=== PATIENT | female | born 1955 | race Caucasian/White ===

== ENCOUNTER 2023-09-23 11:00 | Outpatient (CLI) | payer MEDICARE, SELFPAY ==
--- NOTE | ~2023-09-23 | US_ITS ---
EXAMINATION: US pelvic complete w TV DATE: 09/23/2023 12:04 INDICATION: Postmenopausal bleeding Comparison:No prior studies for comparison. TECHNIQUE: Multiple transabdominal and endovaginal sonographic images of the pelvis performed. FINDINGS: The uterus measures 6.4 x 2.6 x 3.2 cm. The endometrial complex measures 4 mm. There is com plex fluid in the cervix. The right ovary contains a 4.2 cm cyst. There is also a 1.6 cm cyst of the right ovary. The left ovar y is not visualized. There is no free fluid in the pelvis. There are no abnormal masses seen on either side. IMPRESSION: 1. Endometrial thickening with complex fluid in the cervix. The differential diagnosis includes endom etrial hyperplasia, polyp and carcinoma. Biopsy is recommended. Reviewed, dictated and finalized at location B. IMPRESSION: 1. Endometrial thickening with complex fluid in the cervix. The differential di agnosis includes endometrial hyperplasia, polyp and carcinoma. Biopsy is recommended.
== END 2023-09-23 11:01 ==
LOC: MICIMG 11:02
PROVIDERS: PCP Family Medicine; Visit Provider Family Medicine
DX: N95.0 Postmenopausal bleeding (principal); N85.00 Endometrial hyperplasia, unspecified; Z78.0 Asymptomatic menopausal state; Z12.31 Encounter for screening mammogram for malignant neoplasm of breast
CPT/HCPCS: 76830; 76856

== ENCOUNTER 2023-10-16 01:58 | Day surgery (SDC) | payer MEDICARE, SELFPAY ==
--- NOTE | 2023-10-10 13:28 | PC.NURSE ---
Report to the Outpatient Waiting Room, entrance under the green pavilion located off [facility], at time __1200 on date _10/16/23 . Planned Procedure Time: __2:00 PM . Time changes happen often and if your time is changed the preop area will call you the afternoon before. - You and your visitor will be asked to self-screen and do not enter if you have any COVID symptoms. - A mask is optional within the hospital at this time. Patients may have clear liquids (water, carbonated beverages, clear teas, apple juice) until 3 hours prior to surgery ( 11:00 AM)with a maximum of 20 ounces. - No food from midnight until time of surgery - Infants may have breast milk until 4 hours before surgery, infant formula 6 hours prior to surgery. - Children will be allowed to drink immediately following surgery. If applicable, please bring a bottle or sippy cup to assist with drinking. Juice, water, soda, and popsicles are readily available. For infants on formula, please bring formula the day of surgery. Pacifiers are allowed. Take the following medications with a SIP of water the morning of surgery: __AMLODIPINE, DO NOT STOP ANY OF YOUR OTHER PRESCRIPTION MEDICATIONS PRIOR TO SURGERY ?EXCEPT THE FOLLOWING Medications to discontinue per physician __PT STATES LAST DOSE KOTA WAS 10/05/23 INSTRUCTED TO HOLD 10 DAYS PRE OP PER ANESTHESIA. HOLD ALL VITAMINS/SUPPLEMENTS/PROBIOTIC 3 DAYS PRE OP. LAST DOSE 10/12/[address] DUNLAP Please no make-up, nail croatian, hairspray, perfume, deodorant, or body powder the day of surgery. No jewelry (including any body piercings) or valuables the day of surgery, leave them at home. Please take a shower or bath the night before, or the morning of, surgery with an antibacterial soap. Wear comfortable, loose fitting clothing. Children are encouraged to wear pajamas. - Jewelry must be removed prior to entering the operating room. Rings and piercings that are not removed may be cut off. - The hospital will not accept responsibility for valuables. - Please leave all valuables, including medications, at home the day of surgery. If you are going home after surgery, a licensed combine driver must drive you home. - NO public transportation without another adult if you receive anesthesia. - We recommend that an adult stay with you for 24 hours following discharge. - We also recommend that you do not drive, make important decision, drink alcoholic beverages, or take any drugs that were not prescribed by your health care provider for at least 24 hours after your discharge time. For Pediatric surgeries, we recommend two adults accompany the child home. Follow any additional instructions given to you from your surgeon. If you or anyone in your household have experienced Covid symptoms in the past week, please notify your surgeon or the nurse liaison at the phone number below for possible testing. Telephone instructions given to __PATIENT and asked if any additional questions and then verbalized understanding. Patient advised to call surgeon office or pre surgery nurse liaison [phone] if any additional questions.
[2023-10-10 13:39] VITALS: BMI 52.3
--- NOTE | 2023-10-16 08:33 | PM.IMHP ---
H&P: HPI History of Present Illness Date/Time: 10/16/23 08:33 Chief Complaint: postmenopausal bleeding Narrative: 68-year-old female who presents for hysteroscopy D&C for postmenopausal bleeding.? Patient states she intermittent bleeding for the past several years.? Patient states she will periodically have episodes light bleeding on tissue after voiding.? Patient states the bleeding typically resolves after 1 episode and will be several months before returns.? Patient had not had any bleeding for the past year 2.? Patient states she presented to her primary care with complaints and had a pelvic ultrasound ordered.? Patient has not had any continued vaginal bleeding since that time.? She denies any pain, cramping, discharge.? Patient's pelvic ultrasound showed endometrial lining of 4 mm with a small amount of fluid within the endocervical canal.? Patient denies any family history of gynecologic cancers.? She denies any history of systemic HRT Review of Systems Cardiovascular: Cardiovascular: Denies chest pain, Denies leg edema, Denies palpitations, Denies dyspnea and Denies dyspnea on exertion Respiratory: Respiratory: Denies cough, Denies dyspnea and Denies dyspnea on exertion Gastrointestinal: Gastrointestinal: Denies abdominal pain, Denies constipation, Denies diarrhea, Denies nausea and Denies vomiting Genitourinary: Genitourinary: Denies hematuria, Denies urinary frequency, Denies dysuria, Denies pelvic pain, Denies urinary incontinence and Denies vaginal discharge Neurologic: Reports system reviewed and no additional complaints, except as documented Psychiatric: Psychiatric: Reports no additional psychiatric complaints Endocrine: Endocrine: Denies palpitations PMFSH Past Medical History Medical History Asthma GERD (gastroesophageal reflux disease) Hx pulmonary embolism Hypertension, essential Kidney malignancy Surgical History Surgical History H/O gastric sleeve History of delivery History of kidney surgery Hx of cholecystectomy S/P total knee arthroplasty Family History Family History Mother Emphysema lung Father Emphysema lung Carcinoma of colon Sibling Stomach cancer Social History Social History Smoking status: Never smoker Alcohol intake: never Substance use: never Do You Feel Safe in your Home?: Yes Lack of Transportation: No Lack of Food: Never True Current Housing: I Have Housing Concerned About Future Housing: No Difficulty Paying Gas/Electric Bills: No Difficulty Paying for Meds: No Currently Unemployed: No Education: High School Diploma/GED Difficulty w/ Childcare or Family Care: No Living arrangements: alone Occupation/Education: occupation Gender identity (if verbalized by the patient): Female Spiritual care concerns: No Meds Home Medications and Allergies Home Medications Medication Instructions Recorded Confirmed Type aspirin 81 mg tablet,delayed 81 mg PO DAILY 04/08/19 10/10/23 History release (Enteric Coated Aspirin) albuterol sulfate 90 mcg/actuation 2 puff inhalation Q4H PRN 04/09/19 10/10/23 Rx aerosol inhaler (Proventil HFA) SHORTNESS OF BREATH #8.5 grams amlodipine 5 mg tablet 5 mg PO DAILY #0 tabs 04/09/19 10/10/23 Rx escitalopram oxalate 5 mg tablet 5 mg PO QNOON 10/02/23 10/10/23 History (Lexapro) omeprazole 40 mg capsule,delayed 40 mg PO DAILY 10/02/23 10/10/23 History release cyanocobalamin (vitamin B-12) 1,000 mcg PO DAILY 10/10/23 10/10/23 History 1,000 mcg tablet lactobacillus combination no.8 3 3 cell PO DAILY 10/10/23 10/10/23 History billion cell capsule tirzepatide 2.5 mg/0.5 mL 2.5 mg subcut WEEKLY WEIGHT LOSS 10/10/23 10/10/23 History subcutaneous pen injector (Leyla)
[2023-10-16 10:25] VITALS: BP 148/65; PULSE 77; RESP 18; TEMP 36.4; O2SAT 98
[2023-10-16] MEDS: ACETAMINOPHEN 500 MG TABLET 1000 MG PO (10:54)
--- NOTE | 2023-10-16 11:39 | WPDHPUPDATE1 ---
History and Physical Update Update Date/Time: 10/16/23 11:39 Will proceed with hysteroscopy D&C History and Physical has been reviewed, including an updated exam of the patient. There are NO changes in the patient's condition. Risks, benefits, and alternatives have been discussed and questions answered. Patient agrees to proceed with procedure.
[2023-10-16] MEDS: LACTATED RINGERS 1,000 ML 30 ML IV CONT (12:00)
--- NOTE | 2023-10-16 12:25 | W.PM.PROC2 ---
Procedure Note - Detailed Date of Procedure 10/16/23 Pre-op Diagnosis post menopausal bleeding Post-op Diagnosis Same Procedure Performed paracervical block hysteroscopy dilation & curettage Surgeon Pj Bailon MD Anesthesia General Indications abnormal uterine bleeding Findings normal appearing intrauterine cavity. Normal tubal ostia bilaterally Description of Procedure Alexandria Hoover presents for the above procedure. She was counseled as to the indications, risks, benefits, and alternatives to surgery, with the risks including bleeding, infection, damage to surrounding organs, VTE, and complications of anesthesia. Her verbal and written consent was obtained. PROCEDURE: The patient was taken to the OR and general anesthesia induced. She was prepped and draped in Km stirrups with support of the back and bilateral lower extremities. I/O catheterization performed of the bladder. The above findings were noted. Infiltration with 1% lidocaine at the 3 and 9 o'clock cervical positions was performed. A single tooth tenaculum was placed on the anterior lip of the cervix. The cervix was dilated with sequential Jeannine dilators. Hysteroscopy, using a normal saline medium, was performed and showed the above findings. Sharp uterine curettage was then performed and tissue placed on Telfa. The tenaculum was removed and hemostasis was observed. The patient tolerated the procedure well. Sponge, lap, and needle counts were correct. The patient had SCD's on throughout the case for VTE prophylaxis. The patient was taken to the recovery room in stable condition. Estimated Blood Loss 5 Urine Output 200 Drains No Packing No Pathology Yes (endometrial curettings ) Complications No immediate complications Condition Stable Disposition PACU [facility] Billing Surgery - Charge Forward: Surgery Billing
[2023-10-16 12:29] VITALS: BP 121/67; PULSE 81; O2SAT 98
[2023-10-16] MEDS: ONDANSETRON INJ 4 MG/2 ML VIAL IV PUSH (12:50)
[2023-10-16 12:59] VITALS: BP 149/75; PULSE 80
[2023-10-16] MEDS: HYDROcodone/acetaminophen (*CRX) 5-325 MG TABLET 1 TAB PO (13:05)
[2023-10-16 13:26] VITALS: BP 138/64; PULSE 80
== END 2023-10-16 13:28 | disposition home or self-care (01) ==
PROVIDERS: PCP Family Medicine; Visit Provider Student in an Organized Health Care Education/Training Program
PROC: 0U5B8ZZ Destruction of Endometrium, Via Natural or Artificial Opening Endoscopic (ICD-10-PCS; CPT 58563; principal; 2023-10-16 12:00)
DX: N95.0 Postmenopausal bleeding (principal); I10 Essential (primary) hypertension; J45.909 Unspecified asthma, uncomplicated; K21.9 Gastro-esophageal reflux disease without esophagitis; Z79.51 Long term (current) use of inhaled steroids; Z79.82 Long term (current) use of aspirin; Z98.890 Other specified postprocedural states; Z98.84 Bariatric surgery status; Z90.49 Acquired absence of other specified parts of digestive tract; Z85.528 Personal history of other malignant neoplasm of kidney; Z80.0 Family history of malignant neoplasm of digestive organs
CPT/HCPCS: 58558; 88305; A9270; J1100; J2250; J2405; J2704; J3010; J7120

== ENCOUNTER 2023-12-19 00:19 | Day surgery (SDC) | payer MEDICARE, SELFPAY ==
[2023-12-05 13:30] VITALS: BMI 49.1
[2023-12-19 11:17] VITALS: BP 150/82; PULSE 91; RESP 16; TEMP 36.5; O2SAT 97
[2023-12-19] MEDS: LACTATED RINGERS 1,000 ML 150 ML IV CONT (11:29)
--- NOTE | 2023-12-19 11:33 | WPDANESEPPF ---
Anes - Initial Pre Proc Eval Procedure: Operation Date: 12/19/23 12:30 Proposed Procedures p Screening Colonoscopy - Anthony Sosa MD Date/Time: 12/19/23 11:33 Surgeon: Anthony Sosa MD Pre Op Diagnosis: Neoplasm Screening Patient Data Age: 68 Gender: F Height: 1.63 m Weight: 126.8 kg Last Vital Signs Temp 97.7 F 12/19/23 11:17 Pulse 91 12/19/23 11:17 Resp 16 12/19/23 11:17 BP 150/82 H 12/19/23 11:17 Pulse Ox 97 12/19/23 11:17 O2 Del Method Room Air 12/19/23 11:17 Allergies Allergy/AdvReac Type Severity Reaction Status Date / Time codeine Allergy Mild NAUSEA AND Verified 12/19/23 11:13 VOMITING ibuprofen [From Motrin] AdvReac Intermediate Nausea and Verified 12/19/23 11:13 Vomiting Home Medications Medication Instructions Recorded Confirmed Type aspirin 81 mg tablet,delayed 81 mg PO DAILY 04/08/19 12/19/23 History release (Enteric Coated Aspirin) albuterol sulfate 90 mcg/actuation 2 puff inhalation Q4H PRN 04/09/19 12/19/23 Rx aerosol inhaler (Proventil HFA) SHORTNESS OF BREATH #8.5 grams amlodipine 5 mg tablet 5 mg PO DAILY #0 tabs 04/09/19 12/19/23 Rx escitalopram oxalate 5 mg tablet 5 mg PO QNOON 10/02/23 12/19/23 History (Lexapro) omeprazole 40 mg capsule,delayed 40 mg PO DAILY 10/02/23 12/19/23 History release cyanocobalamin (vitamin B-12) 1,000 mcg PO DAILY 10/10/23 12/19/23 History 1,000 mcg tablet lactobacillus combination no.8 3 3 cell PO DAILY 10/10/23 12/19/23 History billion cell capsule tirzepatide 2.5 mg/0.5 mL 2.5 mg subcut WEEKLY WEIGHT LOSS 10/10/23 12/19/23 History subcutaneous pen injector (Mounjaro) vitamin D3 250 mcg (10,000 1 cap PO DAILY 10/10/23 12/19/23 History unit)-vitamin K2 45 mcg capsule acetaminophen 500 mg tablet 500 mg PO Q6H PRN pain #30 tabs 10/16/23 12/19/23 Rx Patient hx anesthesia problems: none Family hx anesthesia problems: none Results Review: All pre-operative results and documents have been reviewed as part of the pre-operative evaluation. [facility] Past Medical History Medical History Asthma GERD (gastroesophageal reflux disease) Hx pulmonary embolism Hypertension, essential Kidney malignancy Surgical History Surgical History H/O gastric sleeve History of delivery History of kidney surgery Hx of cholecystectomy S/P total knee arthroplasty Family History Family History Mother Emphysema lung Father Emphysema lung Carcinoma of colon Sibling Stomach cancer Social History Social History Smoking status: Never smoker Alcohol intake: never Substance use: never Substance use type: does not use Do You Feel Safe in your Home?: Yes Lack of Transportation: No Lack of Food: Never True Current Housing: I Have Housing Concerned About Future Housing: No Difficulty Paying Gas/Electric Bills: No Difficulty Paying for Meds: No Currently Unemployed: No Education: High School Diploma/GED Difficulty w/ Childcare or Family Care: No Living arrangements: alone Occupation/Education: occupation Gender identity (if verbalized by the patient): Female Spiritual care concerns: No Anes - Eval Final PreProcedure Day of Procedure 12/19/23 11:33 Patient weight: morbidly obese Heart: regular rate and rhythm Lungs: clear to auscultation Airway: Mallampati scale class II Neurological: alert and oriented Last oral intake: >/= 8 hours ASA classification: III Emergent: no Anesthetic plan: proceed Anesthesia type and monitoring: general GIVS and standard monitoring Results Review: All pre-operative results and documents have been reviewed as part of the pre-operative evaluation. Informed Consent: The patient
--- NOTE | 2023-12-19 11:38 | PM.HPGS ---
History of Present Illness History of Present Illness Consent: Risks, benefits, and alternatives have been discussed and questions answered. Patient agrees to proceed with procedure. Chief complaint: Neoplasm Screening Narrative: Alexandria Hoover is a 68 year old female with colon polyp 8 years ago Review of Systems Review of Systems: All systems reviewed & are unremarkable except as noted in HPI and below PMFSH Past Medical History Medical History (Updated 12/19/23 @ 11:41 by Anthony Sosa MD) Asthma Colon polyp GERD (gastroesophageal reflux disease) Hx pulmonary embolism Hypertension, essential Kidney malignancy Surgical History Surgical History H/O gastric sleeve History of delivery History of kidney surgery Hx of cholecystectomy S/P total knee arthroplasty Family History Family History Mother Emphysema lung Father Emphysema lung Carcinoma of colon Sibling Stomach cancer Social History Social History Smoking status: Never smoker Alcohol intake: never Substance use: never Substance use type: does not use Do You Feel Safe in your Home?: Yes Lack of Transportation: No Lack of Food: Never True Current Housing: I Have Housing Concerned About Future Housing: No Difficulty Paying Gas/Electric Bills: No Difficulty Paying for Meds: No Currently Unemployed: No Education: High School Diploma/GED Difficulty w/ Childcare or Family Care: No Living arrangements: alone Occupation/Education: occupation Gender identity (if verbalized by the patient): Female Spiritual care concerns: No Meds Home Medications and Allergies Home Medications Medication Instructions Recorded Confirmed Type aspirin 81 mg tablet,delayed 81 mg PO DAILY 04/08/19 12/19/23 History release (Enteric Coated Aspirin) albuterol sulfate 90 mcg/actuation 2 puff inhalation Q4H PRN 04/09/19 12/19/23 Rx aerosol inhaler (Proventil HFA) SHORTNESS OF BREATH #8.5 grams amlodipine 5 mg tablet 5 mg PO DAILY #0 tabs 04/09/19 12/19/23 Rx escitalopram oxalate 5 mg tablet 5 mg PO QNOON 10/02/23 12/19/23 History (Lexapro) omeprazole 40 mg capsule,delayed 40 mg PO DAILY 10/02/23 12/19/23 History release cyanocobalamin (vitamin B-12) 1,000 mcg PO DAILY 10/10/23 12/19/23 History 1,000 mcg tablet lactobacillus combination no.8 3 3 cell PO DAILY 10/10/23 12/19/23 History billion cell capsule tirzepatide 2.5 mg/0.5 mL 2.5 mg subcut WEEKLY WEIGHT LOSS 10/10/23 12/19/23 History subcutaneous pen injector (Leyla) vitamin D3 250 mcg (10,000 1 cap PO DAILY 10/10/23 12/19/23 History unit)-vitamin K2 45 mcg capsule acetaminophen 500 mg tablet 500 mg PO Q6H PRN pain #30 tabs 10/16/23 12/19/23 Rx Allergies Allergy/AdvReac Type Severity Reaction Status Date / Time codeine Allergy Mild NAUSEA AND Verified 12/19/23 11:13 VOMITING ibuprofen [From Motrin] AdvReac Intermediate Nausea and Verified 12/19/23 11:13 Vomiting Vital Signs Vital Signs - 24 hr 12/19/23 11:17 Temperature 97.7 F Pulse Rate 91 Respiratory Rate 16 Blood Pressure 150/82 H Pulse Oximetry 97 Oxygen Delivery Room Air Exam Const: General: comfortable and no acute distress HENMT: Face/Nose/Sinus: Normal nares present Eyes: General: appearance normal, both eyes and all related structures Neck: Neck: no JVD Resp: Auscultation: clear to auscultation bilaterally Cardio: Rate: regular rate Rhythm: regular rhythm GI: Inspection: non-distended GI Palp: Yes Soft to palpation Skin: General skin exam: normal color Neuro: General: gait normal Speech: normal speech Extrem: General: normal to inspection Psych: Mental Status: mental status grossly normal Assessment and Plan Assessment and plan (1) Colon polyp:
[2023-12-19 11:55] VITALS: BP 129/67; PULSE 81; RESP 19; O2SAT 98
[2023-12-19 12:05] VITALS: BP 136/72; PULSE 79; RESP 23; O2SAT 99
[2023-12-19 12:15] VITALS: BP 133/75; PULSE 72; RESP 18; O2SAT 99
== END 2023-12-19 12:22 | disposition home or self-care (01) ==
PROVIDERS: PCP Family Medicine; Visit Provider Internal Medicine Gastroenterology
PROC: 0DJD8ZZ Inspection of Lower Intestinal Tract, Via Natural or Artificial Opening Endoscopic (ICD-10-PCS; CPT 45378; principal; 2023-12-19 12:30)
DX: Z12.11 Encounter for screening for malignant neoplasm of colon (principal); D12.3 Benign neoplasm of transverse colon; K64.8 Other hemorrhoids; K57.30 Diverticulosis of large intestine without perforation or abscess without bleeding; I10 Essential (primary) hypertension; J45.909 Unspecified asthma, uncomplicated; K21.9 Gastro-esophageal reflux disease without esophagitis; E66.01 Morbid (severe) obesity due to excess calories; Z68.42 Body mass index [BMI] 45.0-49.9, adult; Z79.82 Long term (current) use of aspirin; Z79.51 Long term (current) use of inhaled steroids; Z98.890 Other specified postprocedural states; Z98.84 Bariatric surgery status; Z90.49 Acquired absence of other specified parts of digestive tract; Z86.711 Personal history of pulmonary embolism; Z85.528 Personal history of other malignant neoplasm of kidney; Z80.1 Family history of malignant neoplasm of trachea, bronchus and lung; Z80.0 Family history of malignant neoplasm of digestive organs
CPT/HCPCS: 45385; 88305; J7120

== ENCOUNTER 2024-02-17 10:40 | Outpatient (CLI) | payer MEDICARE, SELFPAY ==
--- NOTE | ~2024-02-17 | MM_ITS ---
EXAMINATION: MM screening rashmi BI w franck HISTORY: Screening mammogram TECHNIQUE: Craniocaudal and mediolateral oblique 3-D tomosynthesis images were obtained and synthetic 2-D images were generated. CAD analysis was submitted and interpreted. COMPARISON: No prior mammogram is available for comparison at this institution. BREAST PARENCHYMAL COMPOSITION:Not Dense. The breasts are almost entirely fatty FINDINGS: No suspicious mass, calcification, or architectural distortion are identified in either [place] ast to suggest malignancy. There has been no suspicious interval change. IMPRESSION: No mammographic evidence of malignancy. Recommend routine screening mammography in one year. BI-RADS Category 1: Negative Reviewed, dictated and finalized at location .
== END 2024-02-17 10:41 | disposition home or self-care (01) ==
PROVIDERS: PCP Nurse Practitioner Family; Visit Provider Family Medicine
DX: Z12.31 Encounter for screening mammogram for malignant neoplasm of breast (principal); Z78.0 Asymptomatic menopausal state
CPT/HCPCS: 77063; 77067

== ENCOUNTER 2024-07-19 14:40 | Outpatient (CLI) | payer MEDICARE, SELFPAY ==
--- NOTE | ~2024-07-19 | DEXA_ITS ---
Bone Density Report Name: NEL DICKERSON Age: 69 Sex: Female Ethnicity: White Date of : 1955 Indication: postmenopausal; screening for osteoporosis; height loss; asthma or emphysema; Referring Provider: TERE, RANJITH Anderson Study: Bone densitometry was performed. Exam Date: July 19, 2024 Accession number: [id number] Bone Density: Region BMD T-score Z-score Classification AP Spine(L1-L4) 1.145 0.9 2.8 Normal Femoral Neck (Left) 0.802 -0.4 1.2 Normal Total Hip (Left) 0.999 0.5 1.8 Normal Femoral Neck (Right) 0.884 0.3 1.9 Normal Total Hip (Right) 1.048 0.9 2.2 Normal Total Hip Mean 1.023 0.7 2.0 Normal World Health Organization criteria for BMD impression classify patients as: Normal (T-score at or above -1.0), Osteopenia (T-score between -1.0 and -2.5), or Osteoporosis (T-score at or below -2.5). 10-year Fracture Risk: FRAX not reported because: All T-scores for Spine Total, Hip Total, Femoral Neck at or above -1.0 Clinical Information Provided by Patient: Has the following medical conditions: Asthma or Emphysema Patient maximum height was 64 Menopause Age: 48 No regular weight bearing exercise Onset of menses at age 14 Number of children 1 Impression: The patient has normal bone mass. Discussion: BONE DENSITY IS ABOVE THE MINIMUM DESIRABLE LEVEL AT ALL SKELETAL SITES TESTED. This patient?s bone mineral density is above the minimum desirable level (T-score -1.0 or better) at all sites measured. The patient should follow a healthful lifestyle (good nutrition with adequate calcium and vitamin D, and appropriate weight-bearing exercise). Follow-Up: Consider repeating this study in 5 years or sooner if there is some new clinical indication. Reported by: WIN on 07/19/2024 3:14:00 PM. Reviewed, dictated and finalized at location [facility] [place]
--- OUTSIDE RECORDS SUMMARY | 2024-07-19 14:58 | XMS_ITS | Clinical Summary ---
Author [place] [facility] [place] [address] Address [address] [place] [address] Care Team Providers Care Industrial Service Technician Name Role Phone Shari Sadler MD Primary Care Provider + Allergies Active Allergy Reactions Criticality Noted Date Comments Codeine Rash,Nausea & Vomiting,Hives Medium Ibuprofen Hives,Rash,Nausea & Vomiting Medium Pt states she is allergic to mortin and can take ibuprofen Medications amLODIPine (NORVASC) 5 mg tablet TK 1 T PO QD 3 05/25/2018 Active PROAIR HFA 90 mcg/actuation inhaler INL 2 PFS PO Q 4 H PRN 5 05/20/2018 Active LORazepam (ATIVAN) 1 mg tablet Take 1 mg by mouth every 6 (six) hours as needed for anxiety Active mometasone 220 mcg/ actuation (120) aerosol powdr breath activated every 12 hours Active aspirin 81 mg enteric coated tablet Take 81 mg by mouth daily Active escitalopram (LEXAPRO) 5 mg tablet Take 5 mg by mouth daily Active busPIRone (BUSPAR) 15 mg tablet as needed 03/23/2020 Active Active Problems Problem Noted Date Diagnosed Date SOB (shortness of breath) 10/10/2021 History of pulmonary embolism 10/10/2021 Pulmonary HTN 08/06/2019 Chronic fatigue 02/18/2019 Palpitations 11/26/2018 Morbid obesity with BMI of 50.0-59.9, adult (CMS /HCC) 11/26/2018 Wide-complex tachycardia 08/14/2018 HTN (hypertension), benign 08/14/2018 Other pulmonary embolism without acute cor pulmo nale 07/15/2018 Resolved Problems Problem Noted Date Diagnosed Date Resolved Date Chronic anticoagulation 08/14/201809/2021 Morbid obesity (CMS/HCC) 07/08/201109/2021 Surgical History Surgery Date Site/Laterality Comments SLEEVE GASTROPLASTY NEPHRECTOMY Right CHOLECYSTECTOMY SECTION Medical History Medical History Date Comments Osteoarthritis of both knees Renal cell carcinoma, right (HCC) Anxiety Asthma Bronchitis Hypertension Morbid obesity (HCC) Family History Medical History Relation Name Comments No Known Problems Brother No Known Problems Father No Known Problems Mother Stomach cancer Sister Relation Name Status Comments Brother Alive Father Mother Sister (Age 52) Social History Tobacco Use Types Packs/Day Years Used Date Smoking Tobacco: Never Smokeless Tobacco: Never Alcohol Use Standard Drinks/Week Comments No 0 (1 standard drink = 0.6 oz pur e alcohol) Personal Safety Answer Date Recorded Getting School Help Needed Not on file Comments Unknown Sex and Gender Information Value Date Recorded Sex Assigned at Not on file Legal Sex Female 12:20 AM THERAPIST OCCUPATIONAL Gender Identity Not on file Sexual Orientation Not on file 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 Not on file Not on file Not on file Obstetrics History Last Filed Vital Signs Vital Sign Reading Time Taken Comments Blood Pressure 118/78 10/10/2021 8:24 AM CDT Pulse 79 10/10/2021 8:24 AM CDT Temperature 36.5 C (97.7 F) 04/27/2020 8:11 AM THERAPIST OCCUPATIONAL Respiratory Rate 18 08/25/2018 3:09 PM CDT Oxygen Saturation 98% 10/10/2021 8:24 AM CDT Inhaled Oxygen Concentration - - Weight 135.1 kg (297 lb 12.8 oz) 10/10/2021 8:24 AM CDT Height 162.6 cm (5' 4 ) 10/10/2021 8:24 AM CDT Body Mass Index 51.12 10/10/2021 8:24 AM CDT Plan of Treatment Health Maintenance Due Date Last Done Comments Breast Cancer Screening-Mammogram 1957 Colon Cancer Screening-Colonoscopy 1957 Depression Screening 1957 Fall Risk Assessment 1957 Hepatitis C Screening 1957 Osteoporosis Screening-Bone Density Scan 1957 Hepatitis B Screening 1975 Zoster Vaccine (1 of 2) 2007 Pneumococcal vaccine 65+ (2 of 2 - PPSV23 or PCV20) 07/15/2018 05/20/2018 Well Visit 65+ 2022 Influenza Vaccine (#1) 2024 , 03/11/2019, 04/21/2018, Additional history exists DTaP/Tdap/Td Vaccine (2 - Td or Tdap) 02/22/2025 02/22/2015, 11/16/2001 Insurance [place] [address] Care Teams Industrial Service Technician Relationship Specialty Start Date End Date Shari Sadler MD PCP - General Family Medicine 07/13/18
--- OUTSIDE RECORDS SUMMARY | 2024-07-19 14:58 | XMS_ITS | Data Portability ---
Author Organization [place] - [facility], Main Office Address [address] [place] [address] Care Team Providers Care Children'S Service Worker Name Role Phone RANJITH SADLER Primary Care Provider RANJITH SADLER Referring Provider Assessment Encounter Date Assessment Date Assessment LastModified by Organization Details LastModified Time 10/14/2023 10/14/2023 This note is dictated and transcribed by [employer]. Supervisor Nutritional Yeast variances may occur. Despite proofreading, typographical errors may occur. Occasional wrong-word or 'mejrl-t-[id number]' substitutions may have occurred due to the inherent limitations of voice recording. Read the chart carefully and recognize, using context, where substitutions have occurred. Not available 10/14/2023 09:31:41 10/28/2023 10/28/2023 This note is dictated and transcribed by [employer]. Supervisor Nutritional Yeast variances may occur. Despite proofreading, typographical errors may occur. Occasional wrong-word or 'ybdub-o-smbt' substitutions may have occurred due to the inherent limitations of voice recording. Read the chart carefully and recognize, using context, where substitutions have occurred. Not available 10/28/2023 10:04:42 11/25/2023 11/25/2023 This note is dictated and transcribed by [employer]. Supervisor Nutritional Yeast variances may occur. Despite proofreading, typographical errors may occur. Occasional wrong-word or 'jdnpt-r-[id number]' substitutions may have occurred due to the inherent limitations of voice recording. Read the chart carefully and recognize, using context, where substitutions have occurred. Not available 11/25/2023 09:26:12 Plan of Treatment Reminders Order Date Submit Date Provider Last Modified By Organization Details Last Modified Time Details Appointments None recorded. Lab CBC w/ auto diff 2023 JUAN M Not available 4 08:21:26 hepatic function panel, serum 2023 024 JUAN M Not available 4 08:21:29 magnesium, serum or plasma 2023 024 JUAN M Not available 4 08:21:33 ferritin, serum or plasma 2023 024 JUAN M Not available 4 08:21:34 iron + total iron-bindin g capacity (TIBC), serum 2023 024 JUAN M Not available 4 08:21:31 lipid panel, serum 2023 [email or web address] Not available 4 09:05:52 BMP, serum or plasma 2023 024 JUAN M Not available 4 08:21:27 vitamin B12, serum 2023 024 JUAN M Not available 4 09:06:15 folate, serum 2023 024 [email or web address] Not available 4 08:22:36 TSH, serum or plasma 2023 024 JUAN M Not available 4 09:06:31 vitamin D3, 25-hydroxy, serum 2023 024 JUAN M Not available 4 09:05:33 lipid panel, serum 2023 024 JUAN M [facility], [address], [place], [address], 4 04:10:34 hepatic function panel, serum 2023 024 JUAN M [facility], [address], [place], [address], 4 04:10:33 BMP, serum or plasma 2023 024 [email or web address], [address], [place], [address], 4 04:10:32 CBC w/ auto diff 2023 024 [email or web address], [address], [place], [address], 4 04:10:29 Referral interactive developer referral - Please call patient to schedule an appointment . Thank you. 2023 024 [email or web address] Dwight Daigle DPM, [address] [facility], [address], [place], [address], 4 08:48:59 gastroenter ologist referral - Please call patient to schedule an appointment . Thank you. 2023 024 [facility], [address], [address], [place], [address], 4 14:00:13 physical therapist referral 2023 024 [email or web address] Not available 4 10:09:34 Procedures None recorded. Surgeries None recorded. Imaging MAMMO, screening, digital, bilateral 2023 024 [email or web address] Not available 10:17:45 US, pelvis, transabdomi nal + transvagina l 2023 024 [facility], [address], [place], [address], 4 14:57:57 DEXA 2023 024 [email or web address] Not available 10:17:44 XR, foot, 3 or more view 2023 024 [email or web address] 7 [facility], [address], [address], [place], [address], 09:59:21 Medication Orders Zepbound 2.5 mg/0.5 mL subcutaneou s pen injector 2023 [id number], [address], [place], [address], 15:17:48 Patient TargetsNo targets recorded. Patient Instructions Encounter Date Encounter Id Patient Instructions Last Modified By Organization Details Last Modified Time 09/15/2023 [id number] dementia rating scale-2* Not available 09/15/2023 12:41:25 multi-dimensiona l health assessment questionnaire* [email or web address] Not available 09/15/2023 12:41:51 Personalized a lt Plan and Screening Recommendations Advance Directives - Do you have one? Advance Directives - Do we have your advance directive on file in your health record? Primary Prevention/Interven tion (prevents or decreases the chance of common diseases from occurring) Smoking Risk: Alcohol Misuse Screening: Weight: Physical activity: Nutrition: Fall Risk (screened today): Vaccines Pneumococcal: Influenza: Chronic Disease Risks Stroke: I have no recommendations Active diagnosis, Continue current treatment plan Heart Attack: I have no recommendations Act dustin diagnosis, Continue current treatment plan Clogging of the Arteries: I have no recommendations Act dustin diagnosis, Continue current treatment plan Diabetes: Active diagnosis, Continue current treatment plan Secondary Prevention/Interven tion (detects treatable diseases before they may cause symptoms, disability, or ) Breast Cancer Screening with mammogram: Cervical/Uterine/Ov dieter Cancer Screening: Osteoporosis Screening: Date Screening Last Performed: Colon Cancer Screening: Date Screening Last Performed: Eye Disease Screening: Dementia Risk: Depression Screening: Active diagnosis, Continue current treatment plan [email or web address] Not available 09/15/2023 11:53:46 10/14/2023 [id number] achilles tendon: exercises Not available 10/14/2023 09:58:43 Reason for Referral Fire Prevention Officer Referral for Screening for malignant neoplasm of colon Please call patient to schedule an appointment. Thank you. Referring Physician: Ranjith Sadler, [facility], Encounter Date: 09/15/2023 Filter Machine Operator Referral for Pain in right heel Please call patient to schedule an appointment. Thank you. Referring Physician: Ranjith Sadler, [facility], Encounter Date: 09/15/2023 Physical Therapist Referral for Right Achilles tendinitis achilles tendonitis, equinus Referring Physician: Dwight Daigle, Podiatric Surgery, Encounter Date: 10/14/2023 Results Created Date Observation Date Name Description Value Unit Range Abnormal Flag Note LastModifiedBy Organization Detail LastModifiedTime 09/15/19 24 09/16/2023 CBC WITH DIFFE RENTI AL/PL ATELE T WBC 4.6 x10e3 /uL 3.4-10 .8 Not Available [facility] ([facility]) [address] [place], [address], 09/16/2023 08:21:26 09/15/1909/16/2023 CBC WITH DIFFE RENTI AL/PL ATELE T RBC 5.17 x10e6 /uL 3.77-5 .28 Not Available [facility] ([facility]) [address] [place], [address], 09/16/2023 08:21:26 09/15/1909/16/2023 CBC WITH DIFFE RENTI AL/PL ATELE T hemoglobin 15.2 g/dL 11.1-1 5.9 Not Available [facility] ([facility]) [address] [place], [address], 09/16/2023 08:21:26 09/15/1909/16/2023 CBC WITH DIFFE RENTI AL/PL ATELE T hematocrit 46.8 % 34.0-4 6.6 above high normal Not Available [facility] ([facility]) [address] [place], [address], 09/16/2023 08:21:26 09/15/19 24 09/16/2023 CBC WITH DIFFE RENTI AL/PL ATELE T MCV 91 fL 79-97 Not Available [facility] ([facility]) [address] [facility], [place], [address], 09/16/2023 08:21:26 09/15/19 24 09/16/2023 CBC WITH DIFFE RENTI AL/PL ATELE T MCH 29.4 pg 26.6-3 3.0 Not Available [facility] ([facility]) [address] [facility], [place], [address], 09/16/2023 08:21:26 09/15/19 24 09/16/2023 CBC WITH DIFFE RENTI AL/PL ATELE T MCHC 32.5 g/dL 31.5-3 5.7 Not Available [facility] ([facility]) [address] [facility], [place], [address], 09/16/2023 08:21:26 09/15/19 24 09/16/2023 CBC WITH DIFFE RENTI AL/PL ATELE T RDW 13.6 % 11.7-1 5.4 Not Available [facility] ([facility]) [address] [facility], [place], [address], 09/16/2023 08:21:26 09/15/19 24 09/16/2023 CBC WITH DIFFE RENTI AL/PL ATELE T platelets 290 x10e3 /uL 150-45 0 Not Available [facility] ([facility]) [address] [place], [address], 09/16/2023 08:21:26 09/15/19 24 09/16/2023 CBC WITH DIFFE RENTI AL/PL ATELE T neutrophils 55 % not estab. Not Available [facility] ([facility]) [address] [place], [address], 09/16/2023 08:21:26 09/15/19 24 09/16/2023 CBC WITH DIFFE RENTI AL/PL ATELE T lymphs 32 % not estab. Not Available [facility] ([facility]) [address] [facility], [place], [address], 09/16/2023 08:21:26 09/15/19 24 09/16/2023 CBC WITH DIFFE RENTI AL/PL ATELE T monocytes 9 % not estab. Not Available [facility] ([facility]) [address] [facility], [place], [address], 09/16/2023 08:21:26 09/15/19 24 09/16/2023 CBC WITH DIFFE RENTI AL/PL ATELE T eos 3 % not estab. Not Available [facility] ([facility]) [address] [facility], [place], [address], 09/16/2023 08:21:26 09/15/19 24 09/16/2023 CBC WITH DIFFE RENTI AL/PL ATELE T basos 1 % not estab. Not Available [facility] ([facility]) [address] [place], [address], 09/16/2023 08:21:26 09/15/19 24 09/16/2023 CBC WITH DIFFE RENTI AL/PL ATELE T immature cells AREA COUNSELOR Not Available [facility] ([facility]) [address] [facility], [place], [address], 09/16/2023 08:21:26 09/15/19 24 09/16/2023 CBC WITH DIFFE RENTI AL/PL ATELE T neutrophils (absolute) 2.5 x10e3 /uL 1.4-7. 0 Not Available [facility] ([facility]) [address] [facility], [place], [address], 09/16/2023 08:21:26 09/15/19 24 09/16/2023 CBC WITH DIFFE RENTI AL/PL ATELE T lymphs (absolute) 1.5 x10e3 /uL 0.7-3. 1 Not Available [facility] ([facility]) [address] [facility], [place], [address], 09/16/2023 08:21:26 09/15/19 24 09/16/2023 CBC WITH DIFFE RENTI AL/PL ATELE T monocytes(ab solute) 0.4 x10e3 /uL 0.1-0. 9 Not Available [facility] ([facility]) [address] [facility], [place], [address], 09/16/2023 08:21:26 09/15/19 24 09/16/2023 CBC WITH DIFFE RENTI AL/PL ATELE T eos (absolute) 0.1 x10e3 /uL 0.0-0. 4 Not Available [facility] ([facility]) [address] [facility], [place], [address], 09/16/2023 08:21:26 09/15/19 24 09/16/2023 CBC WITH DIFFE RENTI AL/PL ATELE T baso (absolute) 0.1 x10e3 /uL 0.0-0. 2 Not Available [facility] ([facility]) [address] [facility], [place], [address], 09/16/2023 08:21:26 09/15/19 24 09/16/2023 CBC WITH DIFFE RENTI AL/PL ATELE T immature granulocytes 0 % not estab. Not Available [facility] ([facility]) [address] [facility], [place], [address], 09/16/2023 08:21:26 09/15/19 24 09/16/2023 CBC WITH DIFFE RENTI AL/PL ATELE T immature grans (abs) 0.0 x10e3 /uL 0.0-0. 1 Not Available [facility] ([facility]) [address] [facility], [place], [address], 09/16/2023 08:21:26 09/15/19 24 09/16/2023 CBC WITH DIFFE RENTI AL/PL ATELE T NRBC AREA COUNSELOR Not Available [facility] ([facility]) [address] [place], [address], 09/16/2023 08:21:26 09/15/19 24 09/16/2023 CBC WITH DIFFE RENTI AL/PL ATELE T hematology comments: AREA COUNSELOR Not Available [facility] ([facility]) [address] [facility], [place], [address], 09/16/2023 08:21:26 09/15/19 24 09/16/2023 BASIC METAB OLIC PANEL (8) glucose 86 mg/dL 70-99 Not Available [facility] ([facility]) [address] [place], [address], 09/16/2023 08:21:27 09/15/19 24 09/16/2023 BASIC METAB OLIC PANEL (8) BUN 19 mg/dL 8-27 Not Available [facility] ([facility]) [address] [place], [address], 09/16/2023 08:21:27 09/15/19 24 09/16/2023 BASIC METAB OLIC PANEL (8) creatinine 1.00 mg/dL 0.57-1 .00 Not Available [facility] ([facility]) [address] [place], [address], 09/16/2023 08:21:27 09/15/19 24 09/16/2023 BASIC METAB OLIC PANEL (8) eGFR 62 mL/mi n/1.7 3 >59 Not Available [facility] ([facility]) [address] [place], [address], 09/16/2023 08:21:27 09/15/19 24 09/16/2023 BASIC METAB OLIC PANEL (8) BUN/creatini ne ratio 19 12-28 Not Available [facility] ([facility]) [address] [place], [address], 09/16/2023 08:21:27 09/15/19 24 09/16/2023 BASIC METAB OLIC PANEL (8) sodium 143 mmol/ L 134-14 4 Not Available [facility] ([facility]) [address] [facility] [place], [address], 09/16/2023 08:21:27 09/15/19 24 09/16/2023 BASIC METAB OLIC PANEL (8) potassium 4.4 mmol/ L 3.5-5. 2 Not Available [facility] ([facility]) [address] [facility] [place], [address], 09/16/2023 08:21:27 09/15/19 24 09/16/2023 BASIC METAB OLIC PANEL (8) chloride 104 mmol/ L 96-106 Not Available [facility] ([facility]) [address] [place], [address], 09/16/2023 08:21:27 09/15/19 24 09/16/2023 BASIC METAB OLIC PANEL (8) carbon dioxide, total 22 mmol/ L 20-29 Not Available [facility] ([facility]) [address] [place], [address], 09/16/2023 08:21:27 09/15/19 24 09/16/2023 BASIC METAB OLIC PANEL (8) calcium 10.0 mg/dL 8.7-10 .3 Not Available [facility] ([facility]) [address] [place], [address], 09/16/2023 08:21:27 09/15/19 24 09/16/2023 LIPID PANEL cholesterol, total 218 mg/dL 100-19 9 above high normal Not Available [facility] ([facility]) [address] [place], [address], 09/16/2023 08:21:28 09/15/19 24 09/16/2023 LIPID PANEL triglyceride s 94 mg/dL 0-149 Not Available [facility] ([facility]) [address] [facility] [place], [address], 09/16/2023 08:21:28 09/15/19 24 09/16/2023 LIPID PANEL HDL cholesterol 73 mg/dL >39 Not Available [facility] ([facility]) [address] [facility] [place], [address], 09/16/2023 08:21:28 09/15/19 24 09/16/2023 LIPID PANEL VLDL cholesterol km 16 mg/dL 5-40 Not Available [facility] ([facility]) [address] [facility] [place], [address], 09/16/2023 08:21:28 09/15/19 24 09/16/2023 LIPID PANEL LDL chol calc ([facility]) 129 mg/dL 0-99 above high normal Not Available [facility] ([facility]) [address] [facility] [place], [address], 09/16/2023 08:21:28 09/15/1909/16/2023 LIPID PANEL comment: AREA COUNSELOR Not Available [facility] ([facility]) [address] [facility] [place], [address], 09/16/2023 08:21:28 09/15/1909/16/2023 HEPAT IC FUNCT ION PANEL (7) protein, total 7.6 g/dL 6.0-8. 5 Not Available [facility] ([facility]) [address] [facility] [place], [address], 09/16/2023 08:21:29 09/15/19 24 09/16/2023 HEPAT IC FUNCT ION PANEL (7) albumin 4.6 g/dL 3.9-4. 9 Not Available [facility] ([facility]) [address] [facility] [place], [address], 09/16/2023 08:21:29 09/15/19 24 09/16/2023 HEPAT IC FUNCT ION PANEL (7) bilirubin, total 0.7 mg/dL 0.0-1. 2 Not Available [facility] ([facility]) [address] [place], [address], 09/16/2023 08:21:29 09/15/19 24 09/16/2023 HEPAT IC FUNCT ION PANEL (7) bilirubin, direct 0.22 mg/dL 0.00-0 .40 Not Available [facility] ([facility]) [address] [place], [address], 09/16/2023 08:21:29 09/15/19 24 09/16/2023 HEPAT IC FUNCT ION PANEL (7) alkaline phosphatase 115 IU/L 44-121 Not Available [facility] ([facility]) [address] [place], [address], 09/16/2023 08:21:29 09/15/19 24 09/16/2023 HEPAT IC FUNCT ION PANEL (7) AST (SGOT) 22 IU/L 0-40 Not Available [facility] ([facility]) [address] [place], [address], 09/16/2023 08:21:29 09/15/19 24 09/16/2023 HEPAT IC FUNCT ION PANEL (7) ALT (SGPT) 18 IU/L 0-32 Not Available [facility] ([facility]) [address] [place], [address], 09/16/2023 08:21:29 09/15/19 24 09/16/2023 IRON AND TIBC iron bind.cap.(TI BC) 340 ug/dL 250-45 0 Not Available [facility] ([facility]) [address] [place], [address], 09/16/2023 08:21:30 09/15/19 24 09/16/2023 IRON AND TIBC UIBC 266 ug/dL 118-36 9 Not Available [facility] ([facility]) [address] [place], [address], 09/16/2023 08:21:30 09/15/19 24 09/16/2023 IRON AND TIBC iron 74 ug/dL 27-139 Not Available [facility] ([facility]) [address] [facility], [place], [address], 09/16/2023 08:21:30 09/15/19 24 09/16/2023 IRON AND TIBC iron saturation 22 % 15-55 Not Available [facility] ([facility]) [address] [facility], [place], [address], 09/16/2023 08:21:30 09/15/19 24 09/16/2023 VITAM IN B12 AND FOLAT E vitamin B12 259 pg/mL 232-12 45 Not Available Not Available 09/16/2023 08:21:32 09/15/19 24 09/16/2023 VITAM IN B12 AND FOLAT E folate (folic acid), serum 15.5 NG/mL >3.0 A serum folat e liborio ntrat ion of less than 3.1 ng/mL is consi dered to repre sent clini km defic iency . Not Available Not Available 09/16/2023 08:21:32 09/15/19 24 09/16/2023 TSH TSH 2.130 uIU/m L 0.450- 4.500 Not Available Not Available 09/16/2023 08:21:32 09/15/19 24 09/16/2023 MAGNE SIUM magnesium 1.9 mg/dL 1.6-2. 3 Not Available [facility] ([facility]) [address] [facility], [place], [address], 09/16/2023 08:21:33 09/15/19 24 09/16/2023 MARY TIN ferritin 63 NG/mL 15-150 Not Available [facility] ([facility]) [address] [facility], [place], [address], 09/16/2023 08:21:34 09/15/19 24 09/16/2023 VITAM IN D, 25-HY DROXY vitamin D, 25-hydroxy 22.6 NG/mL 30.0-1 00.0 below low normal Vitam in D defic iency has been defin ed by the Insti tute of Medic ine and an Endoc rine Socie ty pract ice guide line as a level of serum 25-OH vitam in D less than 20 ng/mL (1,2) . The Endoc rine Socie ty went on to [facility] er defin e vitam in D insuf ficie ncy as a level betwe en 21 and 29 ng/mL (2). 1. IOM (Inst itute of Medic ine). 2009. Franciscaa ry refer ence intak es for calci um and D. Bridgette freitas [place]: [facility] . 2. [place] MF, Sarina govea [place], Annalisa off-F elizabeth i AGUILAR, et al. Evalu ation , treat ment, and preve ntion of vitam in D defic iency : an Endoc rine Socie ty clini km pract ice guide line. JCEM. 2010; 96(7) :1911 -30. Not Available Not Available 09/16/2023 08:21:32 03/16/20 24 03/16/2024 CBC WITH DIFFE RENTI AL/PL ATELE T WBC 4.7 x10e3 /uL 3.4-10 .8 normal Not Available [facility] ([facility]) [address] [place], [address], 03/17/2024 04:10:29 03/16/20 24 03/16/2024 CBC WITH DIFFE RENTI AL/PL ATELE T RBC 4.98 x10e6 /uL 3.77-5 .28 normal Not Available [facility] ([facility]) [address] [place], [address], 03/17/2024 04:10:29 03/16/20 24 03/16/2024 CBC WITH DIFFE RENTI AL/PL ATELE T hemoglobin 14.8 g/dL 11.1-1 5.9 normal Not Available [facility] ([facility]) [address] [facility], [place], [address], 03/17/2024 04:10:29 03/16/20 24 03/16/2024 CBC WITH DIFFE RENTI AL/PL ATELE T hematocrit 46.2 % 34.0-4 6.6 normal Not Available [facility] ([facility]) [address] [facility], [place], [address], 03/17/2024 04:10:29 03/16/2003/16/2024 CBC WITH DIFFE RENTI AL/PL ATELE T MCV 93 fL 79-97 normal Not Available [facility] ([facility]) [address] [facility], [place], [address], 03/17/2024 04:10:29 03/16/2003/16/2024 CBC WITH DIFFE RENTI AL/PL ATELE T MCH 29.7 pg 26.6-3 3.0 normal Not Available [facility] ([facility]) [address] [place], [address], 03/17/2024 04:10:29 03/16/2003/16/2024 CBC WITH DIFFE RENTI AL/PL ATELE T MCHC 32.0 g/dL 31.5-3 5.7 normal Not Available [facility] ([facility]) [address] [place], [address], 03/17/2024 04:10:29 03/16/2003/16/2024 CBC WITH DIFFE RENTI AL/PL ATELE T RDW 13.0 % 11.7-1 5.4 Not Available [facility] ([facility]) [address] [place], [address], 03/17/2024 04:10:29 03/16/20 24 03/16/2024 CBC WITH DIFFE RENTI AL/PL ATELE T platelets 265 x10e3 /uL 150-45 0 normal Not Available [facility] ([facility]) [address] [facility], [place], [address], 03/17/2024 04:10:29 03/16/20 24 03/16/2024 CBC WITH DIFFE RENTI AL/PL ATELE T neutrophils 58 % not estab. normal Not Available [facility] ([facility]) [address] [facility], [place], [address], 03/17/2024 04:10:29 03/16/20 24 03/16/2024 CBC WITH DIFFE RENTI AL/PL ATELE T lymphs 26 % not estab. normal Not Available [facility] ([facility]) [address] [facility], [place], [address], 03/17/2024 04:10:29 03/16/20 24 03/16/2024 CBC WITH DIFFE RENTI AL/PL ATELE T monocytes 10 % not estab. normal Not Available [facility] ([facility]) [address] [facility], [place], [address], 03/17/2024 04:10:29 03/16/20 24 03/16/2024 CBC WITH DIFFE RENTI AL/PL ATELE T eos 5 % not estab. normal Not Available [facility] ([facility]) [address] [facility], [place], [address], 03/17/2024 04:10:29 03/16/20 24 03/16/2024 CBC WITH DIFFE RENTI AL/PL ATELE T basos 1 % not estab. normal Not Available [facility] ([facility]) [address] [facility], [place], [address], 03/17/2024 04:10:29 03/16/20 24 03/16/2024 CBC WITH DIFFE RENTI AL/PL ATELE T immature cells AREA COUNSELOR Not Available [facility] ([facility]) [address] [facility], [place], [address], 03/17/2024 04:10:29 03/16/20 24 03/16/2024 CBC WITH DIFFE RENTI AL/PL ATELE T neutrophils (absolute) 2.7 x10e3 /uL 1.4-7. 0 normal Not Available [facility] ([facility]) [address] [facility], [place], [address], 03/17/2024 04:10:29 03/16/20 24 03/16/2024 CBC WITH DIFFE RENTI AL/PL ATELE T lymphs (absolute) 1.2 x10e3 /uL 0.7-3. 1 normal Not Available [facility] ([facility]) [address] [place], [address], 03/17/2024 04:10:29 03/16/20 24 03/16/2024 CBC WITH DIFFE RENTI AL/PL ATELE T monocytes(ab solute) 0.5 x10e3 /uL 0.1-0. 9 normal Not Available [facility] ([facility]) [address] [place], [address], 03/17/2024 04:10:29 03/16/20 24 03/16/2024 CBC WITH DIFFE RENTI AL/PL ATELE T eos (absolute) 0.2 x10e3 /uL 0.0-0. 4 normal Not Available [facility] ([facility]) [address] [place], [address], 03/17/2024 04:10:29 03/16/20 24 03/16/2024 CBC WITH DIFFE RENTI AL/PL ATELE T baso (absolute) 0.1 x10e3 /uL 0.0-0. 2 normal Not Available [facility] ([facility]) [address] [place], [address], 03/17/2024 04:10:29 03/16/20 24 03/16/2024 CBC WITH DIFFE RENTI AL/PL ATELE T immature granulocytes 0 % not estab. Not Available [facility] ([facility]) [address] [facility], [place], [address], 03/17/2024 04:10:29 03/16/20 24 03/16/2024 CBC WITH DIFFE RENTI AL/PL ATELE T immature grans (abs) 0.0 x10e3 /uL 0.0-0. 1 Not Available [facility] ([facility]) [address] [facility], [place], [address], 03/17/2024 04:10:29 03/16/20 24 03/16/2024 CBC WITH DIFFE RENTI AL/PL ATELE T NRBC AREA COUNSELOR Not Available [facility] ([facility]) [address] [facility], [place], [address], 03/17/2024 04:10:29 03/16/20 24 03/16/2024 CBC WITH DIFFE RENTI AL/PL ATELE T hematology comments: AREA COUNSELOR Not Available [facility] ([facility]) [address] [facility], [place], [address], 03/17/2024 04:10:29 03/16/20 24 03/17/2024 BASIC METAB OLIC PANEL (8) glucose 81 mg/dL 70-99 normal Not Available [facility] ([facility]) [address] [facility], [place], [address], 03/17/2024 04:10:32 03/16/2003/17/2024 BASIC METAB OLIC PANEL (8) BUN 21 mg/dL 8-27 normal Not Available [facility] ([facility]) [address] [place], [address], 03/17/2024 04:10:32 03/16/20 24 03/17/2024 BASIC METAB OLIC PANEL (8) creatinine 1.01 mg/dL 0.57-1 .00 above high normal Not Available [facility] ([facility]) [address] [place], [address], 03/17/2024 04:10:32 03/16/20 24 03/17/2024 BASIC METAB OLIC PANEL (8) eGFR 61 mL/mi n/1.7 3 >59 normal Not Available [facility] ([facility]) [address], [place], [address], 03/17/2024 04:10:32 03/16/20 24 03/17/2024 BASIC METAB OLIC PANEL (8) BUN/creatini ne ratio 21 12-28 normal Not Available [facility] ([facility]) [address] [facility], [place], [address], 03/17/2024 04:10:32 03/16/20 24 03/17/2024 BASIC METAB OLIC PANEL (8) sodium 141 mmol/ L 134-14 4 normal Not Available [facility] ([facility]) [address] [facility], [place], [address], 03/17/2024 04:10:32 03/16/20 24 03/17/2024 BASIC METAB OLIC PANEL (8) potassium 4.6 mmol/ L 3.5-5. 2 normal Not Available [facility] ([facility]) [address] [facility], [place], [address], 03/17/2024 04:10:32 03/16/20 24 03/17/2024 BASIC METAB OLIC PANEL (8) chloride 103 mmol/ L 96-106 normal Not Available [facility] ([facility]) [address] [facility], [place], [address], 03/17/2024 04:10:32 03/16/20 24 03/17/2024 BASIC METAB OLIC PANEL (8) carbon dioxide, total 24 mmol/ L 20-29 normal Not Available [facility] ([facility]) [address] [facility], [place], [address], 03/17/2024 04:10:32 03/16/20 24 03/17/2024 BASIC METAB OLIC PANEL (8) calcium 10.1 mg/dL 8.7-10 .3 normal Not Available [facility] ([facility]) [address] [facility] [place], [address], 03/17/2024 04:10:32 03/16/20 24 03/17/2024 HEPAT IC FUNCT ION PANEL (7) protein, total 7.2 g/dL 6.0-8. 5 normal Not Available [facility] ([facility]) [address] [facility] [place], [address], 03/17/2024 04:10:33 03/16/2003/17/2024 HEPAT IC FUNCT ION PANEL (7) albumin 4.3 g/dL 3.9-4. 9 normal Not Available [facility] ([facility]) [address] [facility] [place], [address], 03/17/2024 04:10:33 03/16/2003/17/2024 HEPAT IC FUNCT ION PANEL (7) bilirubin, total 0.7 mg/dL 0.0-1. 2 normal Not Available [facility] ([facility]) [address] [facility], [place], [address], 03/17/2024 04:10:33 03/16/2003/17/2024 HEPAT IC FUNCT ION PANEL (7) bilirubin, direct 0.21 mg/dL 0.00-0 .40 normal Not Available [facility] ([facility]) [address] [facility] [place], [address], 03/17/2024 04:10:33 03/16/2003/17/2024 HEPAT IC FUNCT ION PANEL (7) alkaline phosphatase 77 IU/L 44-121 normal Not Available [facility] ([facility]) [address] [facility] [place], [address], 03/17/2024 04:10:33 03/16/2003/17/2024 HEPAT IC FUNCT ION PANEL (7) AST (SGOT) 20 IU/L 0-40 normal Not Available [facility] ([facility]) [address] [facility] [place], [address], 03/17/2024 04:10:33 03/16/20 24 03/17/2024 HEPAT IC FUNCT ION PANEL (7) ALT (SGPT) 14 IU/L 0-32 normal Not Available [facility] ([facility]) [address] [facility] [place], [address], 03/17/2024 04:10:33 03/16/20 24 03/17/2024 LIPID PANEL cholesterol, total 176 mg/dL 100-19 9 normal Not Available [facility] ([facility]) [address] [facility] [place], [address], 03/17/2024 04:10:34 03/16/2003/17/2024 LIPID PANEL triglyceride s 85 mg/dL 0-149 normal Not Available [facility] ([facility]) [address] [facility] [place], [address], 03/17/2024 04:10:34 03/16/2003/17/2024 LIPID PANEL HDL cholesterol 56 mg/dL >39 normal Not Available [facility] ([facility]) [address] [facility] [place], [address], 03/17/2024 04:10:34 03/16/20 24 03/17/2024 LIPID PANEL VLDL cholesterol km 16 mg/dL 5-40 Not Available [facility] ([facility]) [address] [facility] [place], [address], 03/17/2024 04:10:34 03/16/20 24 03/17/2024 LIPID PANEL LDL chol calc ([facility]) 104 mg/dL 0-99 above high normal Not Available [facility] ([facility]) [address] [facility] [place], [address], 03/17/2024 04:10:34 03/16/20 24 03/17/2024 LIPID PANEL LDL calc comment: 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 [email or web address] [facility] [address], [place], [address], 09/23/2023 16:00:08 10/14/19 24 XR, foot, 3 or more view No observ ation record ed. [email or web address] [facility] [place] [address], [address], [place], [address], 10/14/2023 09:59:17 02/17/20 24 02/17/2024 MAMMO , scree main, digit al, bilat eral No observ ation record ed. [email or web address] [facility] [address], [place], [address], 02/17/2024 13:37:23 02/17/20 24 02/17/2024 MAMMO , scree main, digit al, bilat eral No observ ation record ed. [email or web address] [facility] [address], [place], [address], 02/17/2024 15:23:27 Result Notes None recorded. Problems Name Problem SNOMED Code Status Onset Date Resolution Date Notes Provider Name and Address Organization Details Recorded Time Diverticul itis of colon 646704876 Active Not Available [facility] 3 01:02:01 Burn 515279856 Active Not Available [facility] 3 01:02:01 Serum creatinine outside reference range 700504467 Active Not Available [facility] 3 01:02:01 Asthma 198517748 Active Not Available [facility] 3 01:02:01 Low back pain 036586268 Active Not Available [facility] 3 01:02:01 Osteoarthr itis 991424698 Active Not Available [facility] 3 01:02:01 Obesity 978627232 Active Not Available [facility] 3 01:02:01 Herpes zoster 0478440 Active Not Available [facility] 3 01:02:01 Anxiety 66904549 Active Not Available [facility] 3 01:02:01 Dysuria 12207773 Active Not Available [facility] 3 01:02:01 Pain of breast 74694771 Active Not Available [facility] 3 01:02:02 Essential hypertensi on 53184616 Active Not Available [facility] 3 01:02:02 Hypercalce shahnaz 42574307 Active Not Available [facility] 3 01:02:02 Primary malignant neoplasm of kidney 61212784 Active Not Available [facility] 3 01:02:02 Cough 05874529 Active 2022 Ranjith Sadler MD [address], [place], [address] , [facility] 3 11:02:29 Postmenopa usal bleeding 37726156 Active 2023 Ranjith Sadler MD [address], [place], [address] , [facility] - [facility] 4 12:22:00 Forgetful 70396758 Active 2023 Ranjith Sadler MD [address], [place], [address] , [place] [facility] 4 12:23:10 Spasm 04613520 Active 2023 Ranjith Sadler MD [address], [place], [address] , [facility] - [facility] 4 12:28:32 Pulmonary embolism 09010768 Active 2023 Ranjith Sadler MD [address], [address], [place], [address] , [facility] - [facility] 4 12:29:07 Vitamin D deficiency 19596089 Active 2023 Ranjith Sadler MD [address] [facility], [address], [place], [address] , [facility] - [facility] 4 12:31:51 Pain of left heel 9830126389116 109 Active 2023 Ranjith Sadler MD [address] [facility] [address], [address], [place], [address] , [facility] - [facility] 4 12:37:13 Pain in right heel 2642030279473 105 Active 2023 Ranjith Sadler MD [address] [facility] [address], [address] [address], [place], [address] , [facility] - [facility] 4 12:37:40 Endometria l hyperplasi a 224727936 Active 2023 Ranjith Sadler MD [address] [facility] [address], [place], [address] , [facility] 4 16:00:21 Seasonal allergy 698887688 Active 2023 Loreto munguia [facility] 4 09:19:34 Arthritis 2072412 Active 2023 Loreto munguia [facility] 4 09:19:45 Bronchitis 31270007 Active 2023 Loreto munguia, [facility] 4 09:20:08 Disorder of eye 881751947 Active 2023 Loreto munguia, [facility] 4 09:20:30 Gout 77257268 Active 2023 Loreto munguia, [place] [facility] 4 09:20:36 Heartburn 18183310 Active 2023 Loreto Lindquist null, [place] [employer] [facility] 4 09:20:44 Right Achilles tendinitis 0832844356933 02 Active 2023 Dwight Daigle DPM [address], [address], [place], [address] , [facility] [employer] [facility] 4 09:31:36 Calcaneal spur 79689182 Active 2023 Dwight Daigle DPM [address], [address], [place], [address] , [employer] 4 09:31:42 Equinus contractur e of the ankle 786507662 Active 2023 Dwight Daigle DPM [address], [facility] [address], [place], [address] , [employer] [facility] 09:33:10 Notes:USE OF BLOOD THINNERS Problem Notes None recorded. Procedures Surgical History Date Name Laterality Status Provider Name and Address Organization Details Recorded Time 09/15/19 24 Medicare Wellness CPT Code, subsequent completed Marina Bell RN [place] [employer] [facility] 09/15/2023 11:53:47 11/06/19 12 laparoscopic sleeve gastrectomy completed Not Available [facility] 08/07/2022 00:48:09 05/26/20 07 Kidney completed Not Available [facility] 08/07/2022 00:48:09 05/26/20 07 laparoscopic cholecystectomy completed Not Available [facility] 08/07/2022 00:48:09 delivery only completed Not Available [facility] 08/07/2022 00:48:09 Imaging Results Imaging Date Name Status LastModified by Organization Details LastModified Time 09/23/2023 US, pelvis, transabdominal + transvaginal completed [email or web address] [facility] [address] [facility] [address], [place], [address], 09/23/2023 16:00:08 10/14/2023 XR, foot, 3 or more view completed [email or web address] [facility] [place] [address] [facility], [place], [address], 10/14/2023 09:59:17 02/17/2024 MAMMO, screening, digital, bilateral completed [email or web address] [facility] [address], [place], [address], 02/17/2024 13:37:23 02/17/2024 MAMMO, screening, digital, bilateral completed [email or web address] [facility] [address], [place], [address], 02/17/2024 15:23:27 Procedure Notes None recorded. Medical Equipment None Reported. Allergies Allergen ID Allergen Name Allergen Category Reaction Reaction Severity Criticality Documentation Date Start Date Code Code System Note Provider Name and Address Organization Details Recorded Time 2088 Motrin medicatio n hives Not available Not available 08/07/202290348 8 RxNorm Pt. can take all other NSAID s; just no Motri n. Not Available [facility] 3 01:21:13 2090 codeine medicatio n hives Not available Not available 08/07/2022 2670 RxNorm Not Available [facility] 3 01:21:13 Medications Name Sig Start Date Stop Date Status Note LastModified by Organization Details LastModified Time cefuroxime axetil 250 mg tablet 07/10 completed Not Available Not Available Not Available famotidine 10 mg tablet Take 2 tablets twice a day by oral route as needed. 08/04 completed Not Available Not Available Not Available azithromyci n 250 mg tablet TAKE 2 TABLETS (500 MG) BY ORAL ROUTE ONCE DAILY FOR 1 DAY THEN 1 TABLET (250 MG) BY ORAL ROUTE ONCE DAILY FOR 4 DAYS active Not Available Not Available No t Available fluconazole 150 mg tablet Take 1 tablet by oral route for 1 day. active Not Available Not Available No t Available ondansetron HCl 8 mg tablet Take one tablet PO q 8 hrs prn for nausea active Not Available Not Available No t Available metronidazo le 0.75 % (37.5 mg/5 gram) vaginal gel Insert 1 applicato rful every day by vaginal route for 5 days. active Not Available Not Available No t Available ondansetron HCl 4 mg tablet 05/12 completed Not Available Not Available Not Available prednisone 20 mg tablet TAKE 2 TABLETS BY MOUTH EVERY MORNING FOR 5 DAYS 10/13 completed Not Available Not Available Not Available phentermine 37.5 mg tablet TK 1/2 TO 1 T PO QAM 05/08 completed Not Available Not Available Not Available amlodipine 5 mg tablet TAKE 1 TABLET BY MOUTH EVERY DAY active Not Available Not Available No t Available allopurinol 100 mg tablet Take 1 tablet 3 times a day by oral route for 10 days. 09/14 completed Not Available Not Available Not Available ciprofloxac in 500 mg tablet Take 1 tablet(s) EVERY 12 HOURS by oral route. active Not Available Not Available No t Available sulfamethox azole 800 mg-trimetho prim 160 mg tablet 05/12 completed Not Available Not Available Not Available omeprazole 40 mg capsule,del ayed release TAKE 1 CAPSULE BY MOUTH EVERY DAY active Not Available Not Available No t Available tramadol 50 mg tablet Take 1 tablet every 6 hours by oral route. active Not Available Not Available No t Available acetaminoph en 500 mg tablet TAKE 1 TABLET BY MOUTH EVERY 6 HOURS NEEDED FOR PAIN active Not Available Not Available No t Available Kenalog 40 mg/mL suspension for injection 1 ml injected b/l knees 06/18 completed [facility]-0 [phone] Not Available Not Available Not Available famotidine 20 mg tablet TAKE 1 TABLET BY MOUTH TWICE DAILY NEEDED 09/14 completed Not Available Not Available Not Available Silvadene 1 % topical cream APPLY A 1/16 INCH (1.5 MM) THICK LAYER TO ENTIRE BURN AREA BY TOPICALRO MICAH 2 TIMES PER DAY for 5 days active Not Available Not Available No t Available Xylocaine 10 mg/mL (1 %) injection solution 2 ml injected b/l knees 06/18 completed [facility] [phone] Not Available Not Available Not Available amlodipine 10 mg tablet TK 1 T PO QD 07/21 completed Not Available Not Available Not Available hydrocodone 7.5 mg-acetamin ophen 325 mg tablet 05/12 completed Not Available Not Available Not Available cephalexin 500 mg capsule 02/28 completed Not Available Not Available Not Available pantoprazol e 40 mg tablet,segundo yed release Take 1 tablet every day by oral route. active Not Available Not Available No t Available fluoxetine 20 mg tablet Take 1 tablet every day by oral route. active Not Available Not Available No t Available ranitidine 150 mg tablet TK 1 T PO BID 03/23 completed Not Available Not Available Not Available buspirone 10 mg tablet TAKE 1 TABLET BY MOUTH TWICE DAILY NEEDED 09/14 completed Not Available Not Available Not Available promethazin e 25 mg/mL injection solution 1 ml IM x 1 08/[address] [facility]-0 [phone]- [phone] Not Available Not Available Not Available promethazin e 25 mg tablet TK 1 T PO Q 6 H PRF NAUSEA 07/14 completed Not Available Not Available Not Available indomethaci n 50 mg capsule Take 1 capsule 3 times a day by oral route as needed for 10 days. 09/14 completed Not Available Not Available Not Available cephalexin 500 mg tablet Take 1 tablet twice a day by oral route for 7 days. 02/28 completed Not Available Not Available Not Available mupirocin 2 % topical ointment 1 APPLICATI ON TOPICAL TWICE DAILY,X7 DAY(S) TO AFFECTED AREA active Not Available Not Available No t Available lorazepam 1 mg tablet TK 1 T PO TID PRN 09/14 completed Not Available Not Available Not Available estradiol 0.01% (0.1 mg/gram) vaginal cream insert 1g vaginally at night 1-2x/week active Not Available Not Available No t Available albuterol sulfate HFA 90 mcg/actuati on aerosol inhaler active Not Available Not Available Not Available fluoxetine 20 mg capsule TK 1 C PO QD 06/23 completed Not Available Not Available Not Available doxycycline hyclate 100 mg tablet TAKE 1 TABLET BY MOUTH TWICE A DAY FOR 7 DAYS 10/13 completed Not Available Not Available Not Available phentermine 37.5 mg capsule TAKE 1/2 TO 1 TABLET BY MOUTH EVERY DAY 04/18 completed Not Available Not Available Not Available mometasone 0.1 % topical cream APPLY TO THE AFFECTED AREA TWICE A DAY NEEDED active Not Available Not Available No t Available enoxaparin 40 mg/0.4 mL subcutaneou s syringe INJECT 1 SYRINGE SUBCUTANE OUSLY EVERY DAY FOR 7 DAYS 03/16 completed Not Available Not Available Not Available Vigamox 0.5 % eye drops INT 1 GTT SURGICAL EYE TID DIRECTED. BEGIN 1 DAY B SURGERY 04/18 completed Not Available Not Available Not Available escitalopra m 5 mg tablet TAKE 1 TABLET BY MOUTH EVERY DAY active Not Available Not Available No t Available nitrofurant oin monohydrate /macrocryst als 100 mg capsule Take 1 capsule every 12 hours by oral route for 7 days. active Not Available Not Available No t Available Asmanex Twisthaler 220 mcg/actuati on(120 doses) breath activated inhlr Inhale 2 puffs twice a day by inhalatio n route. 09/19 completed Not Available Not Available Not Available Asmanex Twisthaler 2 01/16 completed Not Available Not Available Not Available budesonide- formoterol HFA 80 mcg-4.5 mcg/actuati on aerosol inhaler 2 puffs twice a day by inhalatio n route. active Not Available Not Available No t Available Durezol 0.05 % eye drops INT 1 GTT SURGICAL EYE TID DIRECTED. BEGIN AFTER SURGERY 04/18 completed Not Available Not Available Not Available Suprep Bowel Prep Kit 17.5 gram-3.13 gram-1.6 gram oral solution MIX AND DRINK UTD 05/20 completed Not Available Not Available Not Available Xarelto 10 mg tablet 05/12 completed Not Available Not Available Not Available Xarelto 20 mg tablet 1 po qday active Not Available Not Available Not Available Ilevro 0.3 % eye drops,suspe nsion INSTILL ONE DROP INTO SURGICAL EYE QD BEGINNING ONE DAY PRIOR TO SURGERY 04/18 completed Not Available Not Available Not Available Eliquis 06/23 completed Not Available Not Available Not Available aspirin 81 mg capsule Take 1 capsule every day by oral route. active Not Available Not Available No t Available Mounjaro 2.5 mg/0.5 mL subcutaneou s pen injector 0.5 ml sc qweek 03/16 completed Not Available Not Available Not Available tirzepatide 4.0mg active Not Available Not A vailable Not Available Zepbound 2.5 mg/0.5 mL subcutaneou s pen injector INJECT 2.5 MG SUBCUTANE OUSLY WEEKLY active Not Available Not Available No t Available Vitals Date Recorded Body weight Body temperature Oxygen saturation Oxygen saturation in Arterial blood by Pulse oximetry Heart rate Systolic blood pressure Diastolic blood pressure Provider Name and Address Organization Details Last Updated DateTime 4 179283. 93 g 97.9 [degF] 96 % 96 % 95 /min 150 mm[Hg] 90 mm[Hg] Marina Bell RN [facility] [employer] [facility] 4 11:56:59 Date Recorded Body height Body mass index (BMI) Body weight Provider Name and Address Organization Details Last Updated DateTime 10/14/2023 162.56 cm 51.5 kg/m2 381053.71 g Loreto Ameena [facility] [employer] [facility] 10/14/2023 09:16:14 Date Recorded Heart rate Respiratory rate Oxygen saturation Oxygen saturation in Arterial blood by Pulse oximetry Systolic blood pressure Diastolic blood pressure Provider Name and Address Organization Details Last Updated DateTime 4 83 /min 14 /min 98 % 98 % 138 mm[Hg] 75 mm[Hg] Leighann Holden [employer] [facility] [employer] [facility] 4 09:20:17 Date Recorded Body height Body mass index (BMI) Body weight Heart rate Respiratory rate Oxygen saturation Oxygen saturation in Arterial blood by Pulse oximetry Systolic blood pressure Diastolic blood pressure Provider Name and Address Organization Details Last Updated DateTime 4 162.56 cm 51.5 kg/m2 606675. 71 g 83 /min 14 /min 98 % 98 % 128 mm[Hg] 71 mm[Hg] Leighann Holden [employer] [facility] [employer] [facility] 4 09:17:18 Date Recorded Body height Body mass index (BMI) Body weight Heart rate Respiratory rate Oxygen saturation Oxygen saturation in Arterial blood by Pulse oximetry Systolic blood pressure Diastolic blood pressure Provider Name and Address Organization Details Last Updated DateTime 4 162.56 cm 51.5 kg/m2 017355. 71 g 77 /min 14 /min 98 % 98 % 141 mm[Hg] 73 mm[Hg] Leighann Holden [employer] [facility] [employer] [facility] 4 09:12:37 Date Recorded Body height Body mass index (BMI) Body weight Body temperature Heart rate Oxygen saturation Oxygen saturation in Arterial blood by Pulse oximetry Systolic blood pressure Diastolic blood pressure Provider Name and Address Organization Details Last Updated DateTime 4 162.56 cm 46.2 kg/m2 711164. 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 09/15/2023 [email or web address] Information not available 09/15/2023 Sex: Unknown Functional Status None recorded. Mental Status None recorded. Family History Relationship Description Onset Age of this Age Resolved Age Notes LastModified by Organization Details LastModified Time Father Chronic obstructive pulmonary disease [id number] Not available 08/07/2022 00:48:12 Father Polyp of colon [id number] Not available 08/07/2022 00:48:12 Mother Chronic obstructive pulmonary disease [id number] Not available 08/07/2022 00:48:13 Paternal Uncle Malignant tumor of lung [id number].133 [id number] Not available 08/07/2022 00:48:13 Sister Malignant tumor of stomach [id number] Not available 08/07/2022 00:48:13 Unspecified Relation Arthritis [email or web address] Not available 024 09:21:27 Unspecified Relation Hypertensive disorder [email or web address] Not available 2023 09:21:38 Unspecified Relation Heart disease [email or web address] Not available 2023 09:21:49 Notes:No colon cancer Medical History Condition Response CANCER: SPECIFY Y ARTHRITIS Y OBESITY Y ANXIETY DISORDER Y USE OF BLOOD THINNERS Y BLOOD CLOTS Y ALLERGIES/HAYFEVER Y PULMONARY DISEASE Y GOUT Y HEARTBURN / REFLUX Y Gynecological HistoryNo gynecological history recorded. Obstetrics History GPAL:G 0 P 0 0 0 0 Immunizations Vaccine Type Date Status Note Provider Nam e and Address Organization Details Recorded Time Influenza, split virus, quadrivalent, PF 3 completed Emerita Granger, STRATEGY INTERN [address], [place], [address], [facility] [employer] [facility] 02/17/2024 13:37:08 Influenza, MDCK, quadrivalent, PF 2 completed Emerita Granger APRN [address], [address], [place], [address], [facility] [employer] [facility] 02/17/2024 13:37:08 zoster recombinant 3 completed Emerita Granger APRN [address], [address], [place], [address], [facility] [employer] [facility] 02/17/2024 13:37:08 zoster recombinant 2 completed Emerita Granger APRN [address], [address], [place], [place], [address] [place] [address], [facility] [employer] [facility] 02/17/2024 13:37:08 Influenza, high-dose, quadrivalent, PF 3 completed Emerita Granger APRN [address], [address], [place], [address], [facility] [employer] [facility] 02/17/2024 13:37:08 COVID-19, mRNA, LNP-S, PF, 30 mcg/0.3 mL dose 1 completed Emerita Granger APRN [address], [address], [place], [address], [facility] [employer] [facility] 02/17/2024 13:37:08 COVID-19, mRNA, LNP-S, PF, 30 mcg/0.3 mL dose 1 completed Emerita Granger APRN [address], [address], [place], [address], [facility] [employer] [facility] 02/17/2024 13:37:08 COVID-19, mRNA, LNP-S, PF, 30 mcg/0.3 mL dose 1 completed Emerita Granger APRN [address], [address], [place], [address], [facility] [employer] [facility] 02/17/2024 13:37:08 Td (adult), 2 Lf tetanus toxoid, preservative free, adsorbed 06/10/200 2 completed Emerita Granger APRN [address], [address], [place], [address], [employer] [facility] [employer] [facility] 02/17/2024 13:37:08 Influenza, split virus, quadrivalent, PF 1 completed Emerita Granger APRN [address], [address], [place], [address], [employer] [facility] [employer] [facility] 02/17/2024 13:37:08 Influenza, split virus, quadrivalent, PF 9 completed Not Available [facility] 08/07/2022 01:20:39 Pneumococcal conjugate PCV 13 8 completed Emerita rGanger APRN [address], [address], [place], [address], [facility] [employer] [facility] [employer] [facility] 02/17/2024 13:37:08 Tdap 5 completed Not Available [facility] 08/07/2022 01:20:39 Influenza, split virus, quadrivalent, PF 0 completed Not Available [facility] 08/07/2022 01:20:39 Influenza, split virus, quadrivalent, PF 8 completed Not Available [facility] 08/07/2022 01:20:39 Influenza, split virus, quadrivalent, preservative 6 completed Not Available [facility] 08/07/2022 01:20:40 Influenza, split virus, quadrivalent, PF 5 completed Not Available [facility] 08/07/2022 01:20:40 Influenza, split virus, trivalent, PF 4 completed Emerita Granger APRN [address], [address], [place], [address], [employer] [facility] [employer] 02/17/2024 13:37:08 Influenza, high-dose, trivalent, PF 4 completed Hali Orona RN [facility], [employer] [facility] [employer] 03/16/2024 10:32:40 Past Encounters Encounter ID Performer Location Encounter Start Date Encounter Closed Date Diagnosis/Indication Diagnosis SNOMED-CT Code Diagnosis ICD10 Code Diagnosis Note [id number] [facility] Primary Care Anca crowe [address] [facility] [facility] [address] [place] [address] 08/09/2020 00:00:00 08/09/2020 14:57:51 [id number] [facility] Primary Care Anca crowe [address] [facility] [address] [place] [address] 11/26/2021 00:00:00 11/26/2021 09:06:52 [id number] Ranjith Sadler MD [facility] Primary Care Anca crowe [address] [facility] [address] [address] [place] [address] 09/15/2023 11:50:11 09/15/2023 12:40:00 Adult health examination 938058676 Z00.00 Z13.1 Z13.220 Mammogram order givenColon oscopy referral givenNo further cervical cancer screen neededDEXA at age 67Pneumova x 23 at age 67 per patientRec ommend RSV vaccineCov id boosters per cdc guidelines Prevnar 13 done 2017Shingr ix done 2021, 2022Flu vaccine yearlyChec k labs Screening for disorder 010824415 Z13.9 Screening mammography 24 415930 Z12.31 Postmenopausal state 764 32286 Z78.0 Essential hypertension 59260159 I10 Z79.899 stable Screening for malignant neoplasm of colon 847937937 Z12.11 Postmenopa usal bleeding 97995398 N95.0 likely skin irrigation , but will check US Forgetful 92167157 R41.3 MMSE 30/30could consider d/c escitalopr am if labs are normal Spasm 48162537 R25.2 R53.83 Vitamin D deficiency 347 77944 E55.9 Pain in right heel 07443 59240 335781 M79.283 [id number] Dwight Daigle DPM [facility] Podiatry [address], [address] [place] [address] 10/14/2023 09:12:39 10/14/2023 10:37:09 Pain in right heel 7953949498 229313 M79.671 Calcaneal spur 51055832 M77.31 recommend supportive shoe gear to prevent pressure to the heelmonito r for wounds Right Achi lles tendinitis 9609762447 02396 M76.61 rice therapyno strenuous activities Rx physical therapyfol low-up 1 month Equinus co ntracture of the ankle 345196532 M24.571 as above [id number] Dwight Daigle DPM [facility] Podiatry [address], [facility] [address] [place] [address] 10/28/2023 09:08:40 10/28/2023 10:30:28 Right Achilles tendinitis 4406814960 38570 M76.61 rice therapyno strenuous activities Rx physical therapy- starts tomorrowfo llow-up 1 month [id number] Dwight Daigle DPM [facility] Podiatry [address], [facility] [address] [place] [address] 11/25/2023 09:03:41 11/25/2023 15:42:52 Right Achilles tendinitis 6590282145 68878 M76.61 rice therapyno strenuous activities Rx physical therapy- Finishes todayconti nue supportive shoe gear and stretching exercises daily to prevent recurrence educated patient on the importance of continuati on of stretching to prevent chronic inflammati on which can cause degradatio n and Achilles injury.fol low-up as needed [id number] Yue Pickett, FURNACE CHARGER-C [facility] Primary [facility] [address] [place] [address] 03/16/2024 09:50:07 03/16/2024 10:36:45 Body mass index 30+ - obesity 806875072 Z68.42 BMI: 46.2 Essential hypertension 07034755 I10 Z79.899 138/78.Pat ient requesting repeat labs. Health Concerns Section Related Observation LastModified by Organization Detai ls LastModified Time None Recorded Concern Status LastModified by Organization Details LastModified Time None Recorded Advance Directives Directive None Recorded Payers Encounter Date Sequence Insurance Name Policy Number Policy Owens Covered Member ID Owens Member ID Guarantor Name 09/15/2023 1 [employer] (MEDICARE REPLACEMENT HMO) [id number] Alexandria Hoover [id number] Alexandria Hoover 10/14/2023 1 [employer] (MEDICARE REPLACEMENT HMO) [id number] Alexandria N Kiko [id number] Alexandria N Kiko 10/28/2023 1 [employer] (MEDICARE REPLACEMENT HMO) [id number] L Alexandria N Kiko [id number] Alexandria N Kiko 11/25/2023 1 [employer] (MEDICARE REPLACEMENT HMO) [id number] L Alexandria N Kiko [id number] Alexandria N Kiko 03/16/2024 1 [employer] (MEDICARE REPLACEMENT HMO) [id number] L Alexandria N Kiko [id number] Alexandria N Kiko Notes Date Note Type Note Provider Name and Address Organization Details Recorded Time 09/15/2023 text/html Home pressures a re 120s/80s regularly. Having some brain fog-wonders if it is due to escitalopram, mood is doing well. Some word finding difficulties but not any worse than usual. She can be forgetful at work, normally has very sharp memory. noticed some blood when wiping vagina July no blood on underwear. She did notice it happened after diarrhea. pain right heel comes and goes, just painful and there, notices it when she bowls and has to wear bowling shoes. Ranjith Sadler MD [address], [address], [place], [address], [employer] 10/20/2023 07:54:41 10/14/2023 text/html . Patient is a 68-year-old female who presents the office with complaints of right heel pain. Patient states the pain is at the Achilles insertion. Patient states this has been ongoing for 1 year. Patient states that walking standing causes more discomfort. Patient denies any injury or wounds to the area. Patient states when she is at rest it does feel better. Patient states today she does not have significant pain due to it being early in the morning. Patient denies any other complaints. Dwight Daigle DPM [address], [place], [address], [employer] 10/14/2023 09:59:48 10/28/2023 text/html . Patient is a 68-year-old female morbidly obese who returns the office for follow-up on right Achilles tendinitis. Patient states overall she is doing better. Patient states she has been doing some at-home stretching. Patient states that she has not yet started physical therapy she starts tomorrow. Patient denies any open wounds to the posterior attachment of the Achilles area. Patient denies any significant pain. Patient states that she has no pain today she only has pain worse when she gets up for breast. Patient denies any other complaints I did recommend that she follow through with physical therapy. Dwight Daigle DPM [address], [address], [place], [address], [employer] 10/28/2023 10:05:05 11/25/2023 text/html . Patient is a 68-year-old female who returns the office for follow-up on right Achilles tendinitis. Patient states overall she is doing very well she states that she is went to physical therapy she is no longer experiencing pain with walking. Patient denies any injury to the heel area. Patient denies any other complaints. Dwight Daigle DPM [address], [address], [place], [address], [employer] 11/25/2023 09:27:04 03/16/2024 text/html Patient is a 68 year old female that presents to the office to discuss weight loss medications. Patient reports she was prescribed Mounjaro in September by Dr. Sadler but it was not approved by her insurance because she is not diabetic. Patient had gastric sleeve in 2011. Patient has tried numerous OTC weight loss supplements as well as Phentermine, had to stop Phentermine due to heart palpitations. Patient wants a script for Zepbound. Patient has been taking Tirzepatide compound for 3 months from [facility], is currently on the 4.0mg. Patient is aware that she will need to start at the 2.5mg dose and increase as directed. Patient reports intermittent red bumps on her bilateral lower extremities and right arm that have been popping up for a couple months. Patient thinks it could be related to the injections however she is not interested in stopping them. Patient denies chest pain and shortness of breath, nausea vomiting and diarrhea. JONATHAN Ross-Darby [address], [address], [place], [address], [place] [facility] 03/16/2024 10:45:56 OBGyn Episode No OBEpisode recorded.
--- OUTSIDE RECORDS SUMMARY | 2024-07-19 14:58 | XMS_ITS | Clinical Summary ---
Author Organization [facility] Address [address] [place] [address] Care Team Providers Care Sharples Machine Operator Name Role Phone Unavailable Primary Care Provider Unavailabl e Social History Tobacco Use Types Packs/Day Years Used Date Smoking Tobacco: Never Assessed Comments Unknown Sex and Gender Information Value Date Recorded Sex Assigned at Not on file Legal Sex Female 5:27 PM CDT Gender Identity Not on file Sexual Orientation Not on file Plan of Treatment Health Maintenance Due Date Last Done Comments Colorectal Cancer Screening Colonoscopy (10 Years) 1955 Hepatitis C 1975 DTaP, Tdap and Td Vaccines ( 1 - Tdap) 1976 Mammogram Screening 1997 Zoster Vaccines (1 of 2) 2007 Dexa Scan (General) 2022 Pneumococcal Vaccine: 65+ Ye ars (1 of 1 - PCV) 2022 COVID-19 Vaccine ( - 2023-2 5 season) 2024 Influenza Adult (#1) 2024 RSV Immunization or 60+ Years (1 - 1-dose 75+ series) 2032 Meningococcal B Vaccine Aged Out No l onger eligible based on patient's age to complete this topic Meningococcal Vaccine Aged Out No og joon eligible based on patient's age to complete this topic RSV Immunizations Under 20 Months Aged Out No longer eligible based on patient's age to complete this topic
--- OUTSIDE RECORDS SUMMARY | 2024-07-19 14:58 | XMS_ITS | Referral Summary ---
Author Organization [facility] [address] Address [address] [place] [address] Care Team Providers Care Medical Case Worker Name Role Phone Shari Sadler MD Primary [...] Chronic anticoagulation 08/14/201809/2021 Morbid obesity (CMS/HCC) 07/08/201109/2021 Social History Tobacco Use Types Packs/Day Years Used Date Smoking Tobacco: Never Smokeless Tobacco: Never Alcohol Use Standard Drinks/Week Comments No 0 (1 standard drink = 0.6 oz pur e alcohol) Personal Safety Answer Date Recorded Getting School Help Needed Not on file Comments Unknown Sex and Gender Information Value Date Recorded Sex Assigned at Not on file 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 Gender Identity Not on file Sexual Orientation Not on file 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 Not on file Not on file Last Filed Vital Signs Vital Sign Reading Time Taken Comments Blood Pressure 118/78 10/10/2021 8:24 AM CDT Pulse 79 10/10/2021 8:24 AM CDT Temperature 36.5 C (97.7 F) 04/27/2020 8:11 AM COLLAR FOLDER OPERATOR Respiratory Rate 18 08/25/2018 3:09 PM CDT Oxygen Saturation 98% 10/10/2021 8:24 AM CDT Inhaled Oxygen Concentration - - Weight 135.1 kg (297 lb 12.8 oz) 10/10/2021 8:24 AM CDT Height 162.6 cm (5' 4 ) 10/10/2021 8:24 AM CDT Body Mass Index 51.12 10/10/2021 8:24 AM CDT Plan of Treatment Not on file [place] Care Teams Medical Case Worker Relationship Specialty Start Date End Date Shari Sadler MD PCP - General Family Medicine 07/13/18
== END 2024-07-19 14:41 | disposition home or self-care (01) ==
LOC: ANHIMG 14:44
PROVIDERS: PCP Nurse Practitioner Family; Visit Provider Family Medicine
DX: Z78.0 Asymptomatic menopausal state (principal)
CPT/HCPCS: 77080

== ENCOUNTER 2024-11-03 08:49 | Emergency (ER) | payer MEDICARE, SELFPAY ==
--- NOTE | ~2024-11-03 | US_ITS ---
EXAMINATION:US venous doppler UE LT INDICATION:Left upper extremity pain TECHNIQUE: Multiple grayscale, color flow and Doppler images of the left upper extremity deep venous systems were obtained and reviewed. COMPARISON:None FINDINGS: The left jugular, subclavian, axillary, brachial, basilic, cephalic, radial and ulnar veins demonstrate normal respiratory variation, augmentation and compressibility. Color flow is also seen within the left jugular, subclavian, axillary, brachial, basilic, cephalic an d radial veins. IMPRESSION: No left upper extremity deep venous thrombosis. Reviewed, dictated and finalized at location A.
--- NOTE | ~2024-11-03 | XR_ITS ---
EXAMINATION: XR shoulder LT min 2V DATE: 11/03/2024 10:09 INDICATION: Left shoulder pain TECHNIQUE: AP internally and externally rotated, AP oblique externally rotated and transscapular Y vi ews of the left shoulder were obtained. COMPARISON: None FINDINGS: Normal alignment. No fracture.Mild glenohumeral and acromioclavicular osteoarthritis. Mild to modera te cervical spondylosis. Visualized portion of the lungs are clear. Soft tissues are unremarkable. IMPRESSION: Mild left glenohumeral and acromioclavicular osteoarthritis. No acute osseous abnormality. Reviewed, dictated and finalized at location A. IMPRESSION: Mild left glenohumeral and acromioclavicular osteoarthritis. No acute osseous a bnormality.
--- OUTSIDE RECORDS SUMMARY | 2024-11-03 08:53 | XMS_ITS | Referral Summary ---
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 Not on file Not on file Last Filed Vital Signs Vital Sign Reading Time Taken Comments Blood Pressure 118/78 10/10/2021 8:24 AM CDT Pulse 79 10/10/2021 8:24 AM CDT Temperature 36.5 C (97.7 F) 04/27/2020 8:11 AM RECEIVING INSPECTOR Respiratory Rate 18 08/25/2018 3:09 PM CDT Oxygen Saturation 98% 10/10/2021 8:24 AM CDT Inhaled Oxygen Concentration - - Weight 135.1 kg (297 lb 12.8 oz) 10/10/2021 8:24 AM CDT Height 162.6 cm (5' 4) 10/10/2021 8:24 AM CDT Body Mass Index 51.12 10/10/2021 8:24 AM CDT Plan of Treatment Not on file [place] Care Teams Contract Serviceman Relationship Specialty Start Date End Date Shari Sadler MD PCP - General Family Medicine 07/13/18
--- OUTSIDE RECORDS SUMMARY | 2024-11-03 08:53 | XMS_ITS | Data Portability ---
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 Slip Cover Sewer variances may occur. Despite proofreading, typographical errors may occur. Occasional wrong-word or 'zspyf-[id number]' substitutions may have occurred due to the inherent limitations of voice recording. Read the chart carefully and recognize, using context, where substitutions have occurred. Not available 10/14/2023 09:31:41 10/28/2023 10/28/2023 This note is dictated and transcribed by [employer]. Slip Cover Sewer variances may occur. Despite proofreading, typographical errors may occur. Occasional wrong-word or 'rzjje-h-lylb' substitutions may have occurred due to the inherent limitations of voice recording. Read the chart carefully and recognize, using context, where substitutions have occurred. Not available 10/28/2023 10:04:42 11/25/2023 11/25/2023 This note is dictated and transcribed by [employer]. Slip Cover Sewer variances may occur. Despite proofreading, typographical errors may occur. Occasional wrong-word or '[id number]' substitutions may have occurred due to the inherent limitations of voice recording. Read the chart carefully and recognize, using context, where substitutions have occurred. Not available 11/25/2023 09:26:12 Plan of Treatment Reminders Order Date Submit Date Provider Last Modified By Organization Details Last Modified Time Details Appointments None recorded. Lab lipid panel, serum 2023 JUAN M [facility], [address], [address], [place], [address], 4 04:10:34 hepatic function panel, serum 2023 024 JUAN M [facility], [address], [address], [place], [address], 4 04:10:33 BMP, serum or plasma 2023 024 JUAN M [facility], [address], [address], [place], [address], 4 04:10:32 CBC w/ auto diff 2023 024 JUAN M [facility], [address], [address], [place], [address], 4 04:10:29 CBC w/ auto diff 2023 024 JUAN M Not available 4 08:21:26 hepatic function panel, serum 2023 024 JUAN M Not available 4 08:21:29 magnesium, serum or plasma 2023 024 JUAN M Not available 4 08:21:33 ferritin, serum or plasma 2023 024 JUAN M Not available 4 08:21:34 iron + total iron-bindin g capacity (TIBC), serum 2023 JUAN M Not available 4 08:21:31 lipid panel, serum 2023 024 [email or web address] Not available 4 09:05:52 BMP, serum or plasma 2023 024 JUAN M Not available 4 08:21:27 vitamin B12, serum 2023 JUAN M Not available 4 09:06:15 folate, serum 2023 [email or web address] Not available 4 08:22:36 TSH, serum or plasma 2023 JUAN M Not available 4 09:06:31 vitamin D3, 25-hydroxy, serum 2023 024 JUAN M Not available 4 09:05:33 Referral physical therapist referral 2023 [email or web address] Not available 4 10:09:34 electricians top helper referral - Please call patient to schedule an appointment . Thank you. 2023 024 [email or web address] Dwight [facility]RAEL, [address], [address], [place], [address], 4 08:48:59 gastroenter ologist referral - Please call patient to schedule an appointment . Thank you. 2023 024 [facility], [address], [address], [place], [address], 4 14:00:13 Procedures None recorded. Surgeries None recorded. Imaging XR, foot, 3 or more view 2023 024 [email or web address] [facility] [place], [address], [place], [address], 4 09:59:21 MAMMO, screening, digital, bilateral 2023 024 [email or web address] Not available 4 10:17:45 US, pelvis, transabdomi nal + transvagina l 2023 024 [facility], [address], [place], [address], 14:57:57 DEXA 2023 024 [email or web address] 256 Not available 10:17:44 Medication Orders Zepbound 2.5 mg/0.5 mL subcutaneou s pen injector 2023 024 [id number], [address] , [place], [address], 15:17:48 Patient TargetsNo targets recorded. Patient Instructions Encounter Date Encounter Id Patient Instructions Last Modified By Organization Details Last Modified Time 09/15/2023 [id number] dementia rating scale-2* [email or web address] Not available 09/15/2023 12:41:25 multi-dimensiona l health assessment questionnaire* [email or web address] Not available 09/15/2023 12:41:51 Personalized a lt Plan and Screening Recommendations Advance Directives - Do you have one? Advance Directives - Do we have your advance directive on file in your health record? Primary Prevention/Interven tion (prevents or decreases the chance of common diseases from occurring) Smoking Risk: Alcohol Misuse Screening: Weight: Physical activity: Nutrition: Fall Risk (screened today): Vaccines Pneumococcal: # Ordered Recommend ed today Recommended today, but you have declined No further needed Your next one in: Influenza: # Ordered Recommend ed today Recommended today, but you have declined Your next one in the fall of this year Chronic Disease Risks Stroke: Active diagnosis, Continue current treatment plan Heart Attack: Active diagnosis, Continue current treatment plan Clogging of the Arteries: Active diagnosis, Continue current treatment plan Diabetes: Active diagnosis, Continue current treatment plan Secondary Prevention/Interven tion (detects treatable diseases before they may cause symptoms, disability, or ) Breast Cancer Screening with mammogram: Cervical/Uterine/Ov dieter Cancer Screening: Osteoporosis Screening: Date Screening Last Performed: Colon Cancer Screening: Date Screening Last Performed: Eye Disease Screening: Your next exam in:# Ordered Recomm ended today Recommended today, but you have declined No Eye exam necessary Dementia Risk: Depression Screening: Active diagnosis, Continue current treatment plan [email or web address] Not available 09/15/2023 11:53:46 10/14/2023 [id number] achilles tendon: exercises Not available 10/14/2023 09:58:43 Reason for Referral 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 Thank you. 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 Thank you. Referring Physician: Ranjith Sadler, [facility], Encounter Date: 09/15/2023 Physical Therapist Referral for Right Achilles tendinitis achilles tendonitis, equinus Referring Physician: Dwight Daigle, Podiatric Surgery, Encounter Date: 10/14/2023 Results Created Date Observation Date Name Description Value Unit Range Abnormal Flag Note LastModifiedBy Organization Detail LastModifiedTime 09/15/1909/16/2023 CBC WITH DIFFE RENTI AL/PL ATELE T WBC 4.6 x10e3 /uL 3.4-10 .8 Not Available [facility] ([facility]) [address] [place], [address], 09/16/2023 08:21:26 09/15/19 24 09/16/2023 CBC WITH DIFFE RENTI AL/PL ATELE T RBC 5.17 x10e6 /uL 3.77-5 .28 Not Available [facility] ([facility]) [address] [place], [address], 09/16/2023 08:21:26 09/15/1909/16/2023 CBC WITH DIFFE RENTI AL/PL ATELE T hemoglobin 15.2 g/dL 11.1-1 5.9 Not Available [facility] ([facility]) [address] [place], [address], 09/16/2023 08:21:26 09/15/19 24 09/16/2023 CBC WITH DIFFE RENTI AL/PL ATELE T hematocrit 46.8 % 34.0-4 6.6 above high normal Not Available [facility] ([facility]) [address] [facility] [address], [place], [address], 09/16/2023 08:21:26 09/15/19 24 09/16/2023 CBC WITH DIFFE RENTI AL/PL ATELE T MCV 91 fL 79-97 Not Available [facility] ([facility]) [address], [place], [address], 09/16/2023 08:21:26 09/15/19 24 09/16/2023 CBC WITH DIFFE RENTI AL/PL ATELE T MCH 29.4 pg 26.6-3 3.0 Not Available [facility] ([facility]) [address] [facility], [place], [address], 09/16/2023 08:21:26 09/15/19 24 09/16/2023 CBC WITH DIFFE RENTI AL/PL ATELE T MCHC 32.5 g/dL 31.5-3 5.7 Not Available [facility] ([facility]) [address] [place], [address], 09/16/2023 08:21:26 09/15/19 24 09/16/2023 CBC WITH DIFFE RENTI AL/PL ATELE T RDW 13.6 % 11.7-1 5.4 Not Available [facility] ([facility]) [address] [place], [address], 09/16/2023 08:21:26 09/15/19 24 09/16/2023 CBC WITH DIFFE RENTI AL/PL ATELE T platelets 290 x10e3 /uL 150-45 0 Not Available [facility] ([facility]) [address] [place], [address], 09/16/2023 08:21:26 09/15/19 24 09/16/2023 CBC WITH DIFFE RENTI AL/PL ATELE T neutrophils 55 % not estab. Not Available [facility] ([facility]) [address] [facility] [address], [place], [address], 09/16/2023 08:21:26 09/15/19 24 09/16/2023 CBC WITH DIFFE RENTI AL/PL ATELE T lymphs 32 % not estab. Not Available [facility] ([facility]) [address] [facility] [address], [place], [address], 09/16/2023 08:21:26 09/15/19 24 09/16/2023 CBC WITH DIFFE RENTI AL/PL ATELE T monocytes 9 % not estab. Not Available [facility] ([facility]) [address] [facility], [place], [address], 09/16/2023 08:21:26 09/15/19 24 09/16/2023 CBC WITH DIFFE RENTI AL/PL ATELE T eos 3 % not estab. Not Available [facility] ([facility]) [address] [facility] [address], [place], [address], 09/16/2023 08:21:26 09/15/19 24 09/16/2023 CBC WITH DIFFE RENTI AL/PL ATELE T basos 1 % not estab. 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 0 Not Available [facility] ([facility]) [address] [place], [address], 09/16/2023 08:21:26 09/15/19 24 09/16/2023 CBC WITH DIFFE RENTI AL/PL ATELE T lymphs (absolute) 1.5 x10e3 /uL 0.7-3. 1 Not Available [facility] ([facility]) [address] [facility] [address], [place], [address], 09/16/2023 08:21:26 09/15/19 24 09/16/2023 CBC WITH DIFFE RENTI AL/PL ATELE T monocytes(ab solute) 0.4 x10e3 /uL 0.1-0. 9 Not Available [facility] ([facility]) [address] [facility] [address], [place], [address], 09/16/2023 08:21:26 09/15/19 24 09/16/2023 CBC WITH DIFFE RENTI AL/PL ATELE T eos (absolute) 0.1 x10e3 /uL 0.0-0. 4 Not Available [facility] ([facility]) [address] [facility] [address], [place], [address], 09/16/2023 08:21:26 09/15/19 24 09/16/2023 CBC WITH DIFFE RENTI AL/PL ATELE T baso (absolute) 0.1 x10e3 /uL 0.0-0. 2 Not Available [facility] ([facility]) [address] [facility] [address], [place], [address], 09/16/2023 08:21:26 09/15/19 24 09/16/2023 CBC WITH DIFFE RENTI AL/PL ATELE T immature granulocytes 0 % not estab. Not Available [facility] ([facility]) [address] [facility] [address], [place], [address], 09/16/2023 08:21:26 09/15/19 24 09/16/2023 CBC WITH DIFFE RENTI AL/PL ATELE T immature grans (abs) 0.0 x10e3 /uL 0.0-0. 1 Not Available [facility] ([facility]) [address], [place], [address], 09/16/2023 08:21:26 09/15/19 24 09/16/2023 CBC WITH DIFFE RENTI AL/PL ATELE T NRBC FUR TRIMMING MACHINE OPERATOR Not Available [facility] ([facility]) [address], [place], [address], 09/16/2023 08:21:26 09/15/19 24 09/16/2023 CBC WITH DIFFE RENTI AL/PL ATELE T hematology comments: FUR TRIMMING MACHINE OPERATOR Not Available [facility] ([facility]) [address], [place], [address], 09/16/2023 08:21:26 09/15/19 24 09/16/2023 BASIC METAB OLIC PANEL (8) glucose 86 mg/dL 70-99 Not Available [facility] ([facility]) [address], [place], [address], 09/16/2023 08:21:27 09/15/19 24 09/16/2023 BASIC METAB OLIC PANEL (8) BUN 19 mg/dL 8-27 Not Available [facility] ([facility]) [address], [place], [address], 09/16/2023 08:21:27 09/15/19 24 09/16/2023 BASIC METAB OLIC PANEL (8) creatinine 1.00 mg/dL 0.57-1 .00 Not Available [facility] ([facility]) [address], [place], [address], 09/16/2023 08:21:27 09/15/19 24 09/16/2023 BASIC METAB OLIC PANEL (8) eGFR 62 mL/mi n/1.7 3 >59 Not Available [facility] ([facility]) [address] [facility], [place], [address], 09/16/2023 08:21:27 09/15/19 24 09/16/2023 BASIC METAB OLIC PANEL (8) BUN/creatini ne ratio 19 12-28 Not Available [facility] ([facility]) [address] [place], [address], 09/16/2023 08:21:27 09/15/19 24 09/16/2023 BASIC METAB OLIC PANEL (8) sodium 143 mmol/ L 134-14 4 Not Available [facility] ([facility]) [address] [place], [address], 09/16/2023 08:21:27 09/15/19 24 09/16/2023 BASIC METAB OLIC PANEL (8) potassium 4.4 mmol/ L 3.5-5. 2 Not Available [facility] ([facility]) [address] [place], [address], 09/16/2023 08:21:27 09/15/19 24 09/16/2023 BASIC METAB OLIC PANEL (8) chloride 104 mmol/ L 96-106 Not Available [facility] ([facility]) [address] [place], [address], 09/16/2023 08:21:27 09/15/19 24 09/16/2023 BASIC METAB OLIC PANEL (8) carbon dioxide, total 22 mmol/ L 20-29 Not Available [facility] ([facility]) [address] [place], [address], 09/16/2023 08:21:27 09/15/19 24 09/16/2023 BASIC METAB OLIC PANEL (8) calcium 10.0 mg/dL 8.7-10 .3 Not Available [facility] ([facility]) [address] [place], [address], 09/16/2023 08:21:27 09/15/19 24 09/16/2023 LIPID PANEL cholesterol, total 218 mg/dL 100-19 9 above high normal Not Available [facility] ([facility]) [address] [facility] [place], [address], 09/16/2023 08:21:28 09/15/19 24 09/16/2023 LIPID PANEL triglyceride s 94 mg/dL 0-149 Not Available [facility] ([facility]) [address] [place], [address], 09/16/2023 08:21:28 09/15/19 24 09/16/2023 LIPID PANEL HDL cholesterol 73 mg/dL >39 Not Available [facility] ([facility]) [address] [facility] [place], [address], 09/16/2023 08:21:28 09/15/19 24 09/16/2023 LIPID PANEL VLDL cholesterol km 16 mg/dL 5-40 Not Available [facility] ([facility]) [address] [facility] [place], [address], 09/16/2023 08:21:28 09/15/19 24 09/16/2023 LIPID PANEL LDL chol calc ([facility]) 129 mg/dL 0-99 above high normal Not Available [facility] ([facility]) [address] [facility] [place], [address], 09/16/2023 08:21:28 09/15/19 24 09/16/2023 LIPID PANEL comment: 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 5 Not Available [facility] ([facility]) [address] [facility] [place], [address], 09/16/2023 08:21:29 09/15/19 24 09/16/2023 HEPAT IC FUNCT ION PANEL (7) albumin 4.6 g/dL 3.9-4. 9 Not Available [facility] ([facility]) [address] [place], [address], 09/16/2023 08:21:29 09/15/19 24 09/16/2023 HEPAT IC FUNCT ION PANEL (7) bilirubin, total 0.7 mg/dL 0.0-1. 2 Not Available [facility] ([facility]) [address] [place], [address], 09/16/2023 08:21:29 09/15/19 24 09/16/2023 HEPAT IC FUNCT ION PANEL (7) bilirubin, direct 0.22 mg/dL 0.00-0 .40 Not Available [facility] ([facility]) [address] [place], [address], 09/16/2023 08:21:29 09/15/19 24 09/16/2023 HEPAT IC FUNCT ION PANEL (7) alkaline phosphatase 115 IU/L 44-121 Not Available [facility] ([facility]) [address] [place], [address], 09/16/2023 08:21:29 09/15/19 24 09/16/2023 HEPAT IC FUNCT ION PANEL (7) AST (SGOT) 22 IU/L 0-40 Not Available [facility] ([facility]) [address] [place], [address], 09/16/2023 08:21:29 09/15/19 24 09/16/2023 HEPAT IC FUNCT ION PANEL (7) ALT (SGPT) 18 IU/L 0-32 Not Available [facility] ([facility]) [address] [place], [address], 09/16/2023 08:21:29 09/15/19 24 09/16/2023 IRON AND TIBC iron bind.cap.(TI BC) 340 ug/dL 250-45 0 Not Available [facility] ([facility]) [address] [place], [address], 09/16/2023 08:21:30 09/15/19 24 09/16/2023 IRON AND TIBC UIBC 266 ug/dL 118-36 9 Not Available [facility] ([facility]) [address] [facility] [facility] [address], [place], [address], 09/16/2023 08:21:30 09/15/19 24 09/16/2023 IRON AND TIBC iron 74 ug/dL 27-139 Not Available [facility] ([facility]) [address] [facility] [facility] [address], [place], [address], 09/16/2023 08:21:30 09/15/19 24 09/16/2023 IRON AND TIBC iron saturation 22 % 15-55 Not Available [facility] ([facility]) [address], [place], [address], 09/16/2023 08:21:30 09/15/19 24 09/16/2023 VITAM IN B12 AND FOLAT E vitamin B12 259 pg/mL 232-12 45 Not Available Not Available 09/16/2023 08:21:32 09/15/1909/16/2023 VITAM IN B12 AND FOLAT E folate (folic acid), serum 15.5 NG/mL >3.0 A serum folat e liborio ntrat ion of less than 3.1 ng/mL is consi dered to repre sent clini km defic iency . Not Available Not Available 09/16/2023 08:21:32 09/15/1909/16/2023 TSH TSH 2.130 uIU/m L 0.450- 4.500 Not Available Not Available 09/16/2023 08:21:32 09/15/1909/16/2023 MAGNE SIUM magnesium 1.9 mg/dL 1.6-2. 3 Not Available [facility] ([facility]) [address] [facility] [address], [place], [address], 09/16/2023 08:21:33 09/15/19 24 09/16/2023 MARY TIN ferritin 63 NG/mL 15-150 Not Available [facility] ([facility]) [address] [facility] [address], [place], [address], 09/16/2023 08:21:34 09/15/19 24 09/16/2023 VITAM IN [...] Endoc rine Socie ty went on to furth er defin e vitam in D insuf ficie ncy as a level betwe en 21 and 29 ng/mL (2). 1. IOM (Inst itute of Medic ine). 2009. Dieta ry refer ence intak es for calci um and D. Bridgette freitas [place]: [facility] . 2. Rocky ruby MF, Sarina ey [place], Annalisa off-F errar i AGUILAR, et al. Evalu ation , treat ment, and preve ntion of vitam in D defic iency : an Endoc rine Socie ty clini km pract ice guide line. JCEM. 2010; 96(7) :1911 -30. Not Available Not Available 09/16/2023 08:21:32 03/16/2003/16/2024 CBC WITH DIFFE RENTI AL/PL ATELE T WBC 4.7 x10e3 /uL 3.4-10 .8 normal Not Available [facility] ([facility]) [address] [facility] [address], [place], [address], 03/17/2024 04:10:29 03/16/20 24 03/16/2024 CBC WITH DIFFE RENTI AL/PL ATELE T RBC 4.98 x10e6 /uL 3.77-5 .28 normal Not Available [facility] ([facility]) [address] [facility] [address], [place], [address], 03/17/2024 04:10:29 03/16/2003/16/2024 CBC WITH DIFFE RENTI AL/PL ATELE T hemoglobin 14.8 g/dL 11.1-1 5.9 normal Not Available [facility] ([facility]) [address] [place], [address], 03/17/2024 04:10:29 03/16/2003/16/2024 CBC WITH DIFFE RENTI AL/PL ATELE T hematocrit 46.2 % 34.0-4 6.6 normal Not Available [facility] ([facility]) [address] [place], [address], 03/17/2024 04:10:29 03/16/2003/16/2024 CBC WITH DIFFE RENTI AL/PL ATELE T MCV 93 fL 79-97 normal Not Available [facility] ([facility]) [address] [place], [address], 03/17/2024 04:10:29 03/16/2003/16/2024 CBC WITH DIFFE RENTI AL/PL ATELE T MCH 29.7 pg 26.6-3 3.0 normal Not Available [facility] ([facility]) [address] [place], [address], 03/17/2024 04:10:29 03/16/2003/16/2024 CBC WITH DIFFE RENTI AL/PL ATELE T MCHC 32.0 g/dL 31.5-3 5.7 normal Not Available [facility] ([facility]) [address] [place], [address], 03/17/2024 04:10:29 03/16/20 24 03/16/2024 CBC WITH DIFFE RENTI AL/PL ATELE T RDW 13.0 % 11.7-1 5.4 Not Available [facility] ([facility]) [address] [place], [address], 03/17/2024 04:10:29 03/16/20 24 03/16/2024 CBC WITH DIFFE RENTI AL/PL ATELE T platelets 265 x10e3 /uL 150-45 0 normal Not Available [facility] ([facility]) [address], [place], [address], 03/17/2024 04:10:29 03/16/20 24 03/16/2024 CBC WITH DIFFE RENTI AL/PL ATELE T neutrophils 58 % not estab. normal Not Available [facility] ([facility]) [address] [facility] [address], [place], [address], 03/17/2024 04:10:29 03/16/20 24 03/16/2024 CBC WITH DIFFE RENTI AL/PL ATELE T lymphs 26 % not estab. normal Not Available [facility] ([facility]) [address] [facility] [address], [place], [address], 03/17/2024 04:10:29 03/16/20 24 03/16/2024 CBC WITH DIFFE RENTI AL/PL ATELE T monocytes 10 % not estab. normal Not Available [facility] ([facility]) [address] [facility] [address], [place], [address], 03/17/2024 04:10:29 03/16/20 24 03/16/2024 CBC WITH DIFFE RENTI AL/PL ATELE T eos 5 % not estab. normal Not Available [facility] ([facility]) [address] [facility] [address], [place], [address], 03/17/2024 04:10:29 03/16/20 24 03/16/2024 CBC WITH DIFFE RENTI AL/PL ATELE T basos 1 % not estab. 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 0 normal Not Available [facility] ([facility]) [address] [place], [address], 03/17/2024 04:10:29 03/16/20 24 03/16/2024 CBC WITH DIFFE RENTI AL/PL ATELE T lymphs (absolute) 1.2 x10e3 /uL 0.7-3. 1 normal Not Available [facility] ([facility]) [address] [place], [address], 03/17/2024 04:10:29 03/16/20 24 03/16/2024 CBC WITH DIFFE RENTI AL/PL ATELE T monocytes(ab solute) 0.5 x10e3 /uL 0.1-0. 9 normal Not Available [facility] ([facility]) [address] [place], [address], 03/17/2024 04:10:29 03/16/20 24 03/16/2024 CBC WITH DIFFE RENTI AL/PL ATELE T eos (absolute) 0.2 x10e3 /uL 0.0-0. 4 normal Not Available [facility] ([facility]) [address] [place], [address], 03/17/2024 04:10:29 03/16/20 24 03/16/2024 CBC WITH DIFFE RENTI AL/PL ATELE T baso (absolute) 0.1 x10e3 /uL 0.0-0. 2 normal Not Available [facility] ([facility]) [address] [place], [address], 03/17/2024 04:10:29 03/16/20 24 03/16/2024 CBC WITH DIFFE RENTI AL/PL ATELE T immature granulocytes 0 % not estab. Not Available [facility] ([facility]) [address] [facility] [address], [place], [address], 03/17/2024 04:10:29 03/16/20 24 03/16/2024 CBC WITH DIFFE RENTI AL/PL ATELE T immature grans (abs) 0.0 x10e3 /uL 0.0-0. 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 Not Available [facility] ([facility]) [address] [facility] [address], [place], [address], 03/17/2024 04:10:29 03/16/2003/16/2024 CBC WITH DIFFE RENTI AL/PL ATELE T hematology comments: FUR TRIMMING MACHINE OPERATOR Not Available [facility] ([facility]) [address], [place], [address], 03/17/2024 04:10:29 03/16/20 24 03/17/2024 BASIC METAB OLIC PANEL (8) glucose 81 mg/dL 70-99 normal Not Available [facility] ([facility]) [address] [facility], [place], [address], 03/17/2024 04:10:32 03/16/2003/17/2024 BASIC METAB OLIC PANEL (8) BUN 21 mg/dL 8-27 normal Not Available [facility] ([facility]) [address] [facility] [address], [place], [address], 03/17/2024 04:10:32 03/16/20 24 03/17/2024 BASIC METAB OLIC PANEL (8) creatinine 1.01 mg/dL 0.57-1 .00 above high normal Not Available [facility] ([facility]) [address] [facility] [address], [place], [address], 03/17/2024 04:10:32 03/16/20 24 03/17/2024 BASIC METAB OLIC PANEL (8) eGFR 61 mL/mi n/1.7 3 >59 normal Not Available [facility] ([facility]) [address] [facility] [place], [address], 03/17/2024 04:10:32 03/16/2003/17/2024 BASIC METAB OLIC PANEL (8) BUN/creatini ne ratio 21 12-28 normal Not Available [facility] ([facility]) [address] [facility] [address], [place], [address], 03/17/2024 04:10:32 03/16/20 24 03/17/2024 BASIC METAB OLIC PANEL (8) sodium 141 mmol/ L 134-14 4 normal Not Available [facility] ([facility]) [address] [facility] [place], [address], 03/17/2024 04:10:32 03/16/20 24 03/17/2024 BASIC METAB OLIC PANEL (8) potassium 4.6 mmol/ L 3.5-5. 2 normal Not Available [facility] ([facility]) [address] [facility] [place], [address], 03/17/2024 04:10:32 03/16/20 24 03/17/2024 BASIC METAB OLIC PANEL (8) chloride 103 mmol/ L 96-106 normal Not Available [facility] ([facility]) [address] [facility] [place], [address], 03/17/2024 04:10:32 03/16/20 24 03/17/2024 BASIC METAB OLIC PANEL (8) carbon dioxide, total 24 mmol/ L 20-29 normal Not Available [facility] ([facility]) [address] [place], [address], 03/17/2024 04:10:32 03/16/2003/17/2024 BASIC METAB OLIC PANEL (8) calcium 10.1 mg/dL 8.7-10 .3 normal Not Available [facility] ([facility]) [address] [facility] [place], [address], 03/17/2024 04:10:32 03/16/20 24 03/17/2024 HEPAT IC FUNCT ION PANEL (7) protein, total 7.2 g/dL 6.0-8. 5 normal Not Available [facility] ([facility]) [address] [facility] [place], [address], 03/17/2024 04:10:33 03/16/20 24 03/17/2024 HEPAT IC FUNCT ION PANEL (7) albumin 4.3 g/dL 3.9-4. 9 normal Not Available [facility] ([facility]) [address] [facility] [place], [address], 03/17/2024 04:10:33 03/16/2003/17/2024 HEPAT IC FUNCT ION PANEL (7) bilirubin, total 0.7 mg/dL 0.0-1. 2 normal Not Available [facility] ([facility]) [address] [facility] [place], [address], 03/17/2024 04:10:33 03/16/2003/17/2024 HEPAT IC FUNCT ION PANEL (7) bilirubin, direct 0.21 mg/dL 0.00-0 .40 normal Not Available [facility] ([facility]) [address] [facility] [place], [address], 03/17/2024 04:10:33 03/16/20 24 03/17/2024 HEPAT IC FUNCT ION PANEL (7) alkaline phosphatase 77 IU/L 44-121 normal Not Available [facility] ([facility]) [address] [facility] [address], [place], [address], 03/17/2024 04:10:33 03/16/20 24 03/17/2024 HEPAT IC FUNCT ION PANEL (7) AST (SGOT) 20 IU/L 0-40 normal Not Available [facility] ([facility]) [address] [facility] [address], [place], [address], 03/17/2024 04:10:33 03/16/20 24 03/17/2024 HEPAT IC FUNCT ION PANEL (7) ALT (SGPT) 14 IU/L 0-32 normal Not Available [facility] ([facility]) [address] [facility] [place], [address], 03/17/2024 04:10:33 03/16/20 24 03/17/2024 LIPID PANEL cholesterol, total 176 mg/dL 100-19 9 normal Not Available [facility] ([facility]) [address] [place], [address], 03/17/2024 04:10:34 03/16/20 24 03/17/2024 LIPID PANEL triglyceride s 85 mg/dL 0-149 normal Not Available [facility] ([facility]) [address] [place], [address], 03/17/2024 04:10:34 03/16/20 24 03/17/2024 LIPID PANEL HDL cholesterol 56 mg/dL >39 normal Not Available [facility] ([facility]) [address] [place], [address], 03/17/2024 04:10:34 03/16/20 24 03/17/2024 LIPID PANEL VLDL cholesterol km 16 mg/dL 5-40 Not Available [facility] ([facility]) [address] [place], [address], 03/17/2024 04:10:34 03/16/20 24 03/17/2024 LIPID PANEL LDL chol calc ([facility]) 104 mg/dL 0-99 above high normal Not Available [facility] ([facility]) [address] [facility] [address], [place], [address], 03/17/2024 04:10:34 03/16/20 24 03/17/2024 LIPID PANEL 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 [email or web address] [facility] [address], [place], [address], 09/23/2023 16:00:08 10/14/19 24 XR, foot, 3 or more view No observ ation record ed. [email or web address] [facility] [place] [address], [place], [address], 10/14/2023 09:59:17 02/17/20 24 02/17/2024 MAMMO , scree main, digit al, bilat eral No observ ation record ed. [email or web address] [facility] [address], [place], [address], 02/17/2024 13:37:23 02/17/20 24 02/17/2024 MAMMO , scree main, digit al, bilat eral No observ ation record ed. [email or web address] [facility] [address], [place], [address], 02/17/2024 15:23:27 07/20/19 25 07/19/2024 DEXA No observ ation record ed. [facility] [address], [place], [address], 07/20/2024 13:08:55 07/20/19 25 07/19/2024 DEXA No observ ation record ed. [email or web address] [facility] [address], [place], [address], 07/20/2024 13:30:20 07/20/19 25 07/19/2024 DEXA No observ ation record ed. [facility] [address], [place], [address], 07/20/2024 13:29:15 Result Notes None recorded. Problems Name Problem SNOMED Code Status Onset Date Resolution Date Notes Provider Name and Address Organization Details Recorded Time Diverticul itis of colon 585451073 Active Not Available [facility] 3 01:02:01 Burn 727809600 Active Not Available [facility] 3 01:02:01 Serum creatinine outside reference range 558389805 Active Not Available [facility] 3 01:02:01 Asthma 528114733 Active Not Available [facility] 3 01:02:01 Low back pain 303457602 Active Not Available [facility] 3 01:02:01 Osteoarthr itis 905107886 Active Not Available [facility] 3 01:02:01 Obesity 051877163 Active Not Available [facility] 3 01:02:01 Herpes zoster 8360077 Active Not Available [facility] 3 01:02:01 Anxiety 58194191 Active Not Available [facility] 3 01:02:01 Dysuria 25998417 Active Not Available [facility] 3 01:02:01 Pain of breast 87240225 Active Not Available [facility] 3 01:02:02 Essential hypertensi on 51121974 Active Not Available [facility] 3 01:02:02 Hypercalce shahnaz 05328484 Active Not Available [facility] 3 01:02:02 Primary malignant neoplasm of kidney 13101198 Active Not Available [facility] 3 01:02:02 Cough 02702660 Active 2022 Ranjith Sadler MD [address], [place], [address] , [facility] 3 11:02:29 Postmenopa usal bleeding 12240087 Active 2023 Ranjith Sadler MD [address], [place], [address] , [facility] 4 12:22:00 Forgetful 97383212 Active 2023 Ranjith Sadler MD [address], [place], [address] , [facility] 4 12:23:10 Spasm 67531551 Active 2023 Ranjith Sadler MD [address], [place], [address] , [facility] 4 12:28:32 Pulmonary embolism 59234377 Active 2023 Ranjith Sadler MD [address], [place], [address] , [facility] 4 12:29:07 Vitamin D deficiency 82466666 Active 2023 MD Arun Marrero, [address], [place], [address] , [facility] 4 12:31:51 Pain of left heel 9496363454142 109 Active 2023 MD Arun Marrero, [address], [place], [address] , [facility] 4 12:37:13 Pain in right heel 2418660300347 105 Active 2023 MD Ar[address], [place], [address] , [facility] 4 12:37:40 Endometria l hyperplasi a 141311518 Active 2023 MD Arun Marrero, [facility] [address], [place], [address] , [facility] 4 16:00:21 Seasonal allergy 636531321 Active 2023 Loreto Lindquist null, [facility] 4 09:19:34 Arthritis 0880108 Active 2023 Loreto Lindquist null, [facility] 4 09:19:45 Bronchitis 36271110 Active 2023 Loreto Lindquist null, [facility] 4 09:20:08 Disorder of eye 544027391 Active 2023 Loreto Lindquist null, [facility] 4 09:20:30 Gout 60290238 Active 2023 Loreto Lindquist null, [facility] 4 09:20:36 Heartburn 44325759 Active 2023 Loreto Lindquist null, [facility] 4 09:20:44 Right Achilles tendinitis 1823702157124 02 Active 2023 Dwight Daigle DPM [address] [address], [place], [address] , [facility] 4 09:31:36 Calcaneal spur 26814386 Active 2023 Dwight Daigle DPM [address] [facility] [address], [place], [address] , [facility] 4 09:31:42 Equinus contractur e of the ankle 629485725 Active 2023 Dwight Daigle DPM [address] [facility] [address], [place], [address] , [facility] 4 09:33:10 Notes:USE OF BLOOD THINNERS Problem Notes None recorded. Procedures Surgical History Date Name Laterality Status Provider Name and Address Organization Details Recorded Time 09/15/19 Medicare Wellness CPT Code, subsequent completed Marina Bell RN [facility] 09/15/2023 11:53:47 11/06/19 12 laparoscopic sleeve gastrectomy completed Not Available [facility] 08/07/2022 00:48:09 05/26/20 07 Kidney completed Not Available [facility] 08/07/2022 00:48:09 05/26/20 07 laparoscopic cholecystectomy completed Not Available [facility] 08/07/2022 00:48:09 delivery only completed Not Available [facility] 08/07/2022 00:48:09 Imaging Results None recorded. Procedure Notes None recorded. Medical Equipment None Reported. Allergies Allergen ID Allergen Name Allergen Category Reaction Reaction Severity Criticality Documentation Date Start Date Code Code System Note Provider Name and Address Organization Details Recorded Time 2088 Motrin medicatio n hives Not available Not available 08/07/2022 8 RxNorm Pt. can take all other NSAID s; just no Motri n. Not Available [facility] 3 01:21:13 2090 codeine medicatio n hives Not available Not available 08/07/2022 2670 RxNorm Not Available [facility] 3 01:21:13 Medications Name Sig Start [...] 1 ml injected b/l knees 06/18 completed [facility]-0 0003- [id number] Not Available Not Available [...] 2 ml injected b/l knees 06/18 completed [facility] [phone] [id number] Not Available Not Available Not [...] 1 ml IM x 1 08/04 completed [facility]-0 0641- [phone]- 21 Not Available Not Available [...] Address Organization Details Last Updated DateTime 4 542845. 93 g 97.9 [degF] 96 % 96 % 95 /min 150 mm[Hg] 90 mm[Hg] Marina Bell RN [place] [facility] 4 11:56:59 Date Recorded Body height Body mass index (BMI) Body weight Provider Name and Address Organization Details Last Updated DateTime 10/14/2023 162.56 cm 51.5 kg/m2 124212.71 g Loreto Ameena [employer] 10/14/2023 09:16:14 Date Recorded Heart rate Respiratory rate Oxygen saturation Oxygen saturation in Arterial blood by Pulse oximetry Systolic blood pressure Diastolic blood pressure Provider Name and Address Organization Details Last Updated DateTime 4 83 /min 14 /min 98 % 98 % 138 mm[Hg] 75 mm[Hg] Leighann Holden [employer] 4 09:20:17 Date Recorded Body height Body mass index (BMI) Body weight Heart rate Respiratory rate Oxygen saturation Oxygen saturation in Arterial blood by Pulse oximetry Systolic blood pressure Diastolic blood pressure Provider Name and Address Organization Details Last Updated DateTime 4 162.56 cm 51.5 kg/m2 954196. 71 g 83 /min 14 /min 98 % 98 % 128 mm[Hg] 71 mm[Hg] Leighann Holden [employer] 4 09:17:18 Date Recorded Body height Body mass index (BMI) Body weight Heart rate Respiratory rate Oxygen saturation Oxygen saturation in Arterial blood by Pulse oximetry Systolic blood pressure Diastolic blood pressure Provider Name and Address Organization Details Last Updated DateTime 4 162.56 cm 51.5 kg/m2 553106. 71 g 77 /min 14 /min 98 % 98 % 141 mm[Hg] 73 mm[Hg] Leighann Holden [employer] 4 09:12:37 Date Recorded Body height Body mass index (BMI) Body weight Body temperature Heart rate Oxygen saturation Oxygen saturation in Arterial blood by Pulse oximetry Systolic blood pressure Diastolic blood pressure Provider Name and Address Organization Details Last Updated DateTime 4 162.56 cm 46.2 kg/m2 185857. 35 g 97.5 [degF] 87 /min 98 % 98 % 138 mm[Hg] 78 mm[Hg] Marina Bell RN [employer] [facility] [employer] 4 10:07:06 Social History Question Answer Notes LastModified by Organizat [employer] Details LastModified Time Tobacco Smoking Status Never Smoker Not Available [facility] 08/07/2022 00:45:13 What Was The Date Of Your Most Recent Tobacco Screening? 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 Family History Relationship Description Onset Age of this Age Resolved Age Notes LastModified by Organization Details LastModified Time Father Chronic obstructive pulmonary disease [id number] Not available 08/07/2022 00:48:12 Father Polyp of colon MIGRATION.869 [id number] Not available 08/07/2022 00:48:12 Mother Chronic obstructive pulmonary disease MIGRATION.919 [id number] Not available 08/07/2022 00:48:13 Paternal Uncle Malignant neoplasm of lung MIGRATION.800 [id number] Not available 08/07/2022 00:48:13 Sister Malignant tumor of stomach MIGRATION.147 [id number] Not available 08/07/2022 00:48:13 Unspecified Relation Arthritis [...] split virus, quadrivalent, PF 3 completed Emerita Granger APRN [address] [facility] [address], [place], [address], [place] [facility] [employer] 02/17/2024 13:37:08 Influenza, MDCK, quadrivalent, PF 2 completed Emerita Granger APRN [address], [place], [address], [facility] [employer] [facility] 02/17/2024 13:37:08 zoster recombinant 3 completed Emerita Granger APRN [address], [place], [address], [facility] [employer] [facility] 02/17/2024 13:37:08 zoster recombinant [address], [place], [address], [facility] [employer] [facility] 02/17/2024 13:37:08 Influenza, high-dose, quadrivalent, PF 3 completed Emerita Granger APRN [address], [place], [address], [facility] [employer] [facility] 02/17/2024 13:37:08 COVID-19, mRNA, LNP-S, PF, 30 mcg/0.3 mL dose 1 completed [address], [place], [address], [facility] [employer] [facility] 02/17/2024 13:37:08 COVID-19, mRNA, LNP-S, PF, 30 mcg/0.3 mL dose 1 completed [address], [place], [address], [facility] [employer] [facility] 02/17/2024 13:37:08 COVID-19, mRNA, LNP-S, PF, 30 mcg/0.3 mL dose 1 milagros Granger APRN [address], [place], [address], [facility] [employer] [facility] 02/17/2024 13:37:08 Td (adult), 2 Lf tetanus toxoid, preservative free, adsorbed 2 completed Emerita Granger APRN [address], [place], [address], [facility] [employer] 02/17/2024 13:37:08 Influenza, split virus, quadrivalent, PF 1 completed Emerita Granger APRN [address], [place], [address], [facility] [employer] [facility] [employer] [facility] 02/17/2024 13:37:08 Influenza, split virus, quadrivalent, PF 9 completed Not Available [facility] 08/07/2022 01:20:39 Pneumococcal conjugate PCV 13 8 completed Emerita Granger APRN [address], [place], [address], [facility] [employer] [facility] [employer] [facility] 02/17/2024 13:37:08 Tdap 5 completed Not Available [facility] 08/07/2022 01:20:39 Influenza, split virus, quadrivalent, PF 0 completed Not Available [facility] 08/07/2022 01:20:39 Influenza, split virus, quadrivalent, PF 8 completed Not Available [facility] 08/07/2022 01:20:39 Influenza, split virus, quadrivalent, preservative 6 completed Not Available [facility] 08/07/2022 01:20:40 Influenza, split virus, quadrivalent, PF 5 completed Not Available [facility] 08/07/2022 01:20:40 Influenza, split virus, trivalent, PF 4 completed Emerita Granger APRN [address], [place], [address], [facility] [employer] [facility] [employer] 02/17/2024 13:37:08 Influenza, high-dose, trivalent, PF 4 completed Hali Orona RN [place], [place] [employer] [facility] [employer] 03/16/2024 10:32:40 Past Encounters Encounter ID Performer Location Encounter Start Date Encounter Closed Date Diagnosis/Indication Diagnosis SNOMED-CT Code Diagnosis ICD10 Code Diagnosis Note [id number] Ranjith Sadler MD [facility] [address] [place] [address] 08/09/2020 00:00:00 08/09/2020 14:57:51 [id number] Ranjith Sadler MD [facility] Primary [facility] [place] [address] [facility] [address] [place] [address] 11/26/2021 00:00:00 11/26/2021 09:06:52 [id number] Ranjith Sadler MD [facility] Primary Care [place] [address] [facility] [address] [place] [address] 09/15/2023 11:50:11 09/15/2023 12:40:00 Adult health examination 130959521 Z00.00 Z13.1 Z13.220 Mammogram order givenColon oscopy referral givenNo further cervical cancer screen neededDEXA at age 67Pneumova x 23 at age 67 per patientRec ommend RSV vaccineCov id boosters per cdc guidelines Prevnar 13 done 2017Shingr ix done 2021, 2022Flu vaccine yearlyChec k labs Screening for disorder 486746671 Z13.9 Screening mammography 24 944899 Z12.31 Postmenopausal state 764 21031 Z78.0 Essential hypertension 77730059 I10 Z79.899 stable Screening for malignant neoplasm of colon 488852336 Z12.11 Postmenopa usal bleeding 19567274 N95.0 likely skin irrigation , but will check US Forgetful 34903950 R41.3 MMSE 30/30could consider d/c escitalopr am if labs are normal Spasm 49568047 R25.2 R53.83 Vitamin D deficiency 347 20212 E55.9 Pain in right heel 71261 22478 531986 M79.131 [id number] Dwight Daigle DPM [facility] [place] [address] [facility] [address] [place] [address] 10/14/2023 09:12:39 10/14/2023 10:37:09 Pain in right heel 2037798452 679325 M79.671 Calcaneal spur 24535663 M77.31 recommend supportive shoe gear to prevent pressure to the heelmonito r for wounds Right Achi lles tendinitis 9076449842 46024 M76.61 rice therapyno strenuous activities Rx physical therapyfol low-up 1 month Equinus co ntracture of the ankle 111007048 M24.571 as above [id number] Dwight Daigle DPM [facility] [place] [address] [address] 10/28/2023 09:08:40 10/28/2023 10:30:28 Right Achilles tendinitis 9143777843 51701 M76.61 rice therapyno strenuous activities Rx physical therapy- starts tomorrowfo llow-up 1 month [id number] Dwight Daigle DPM [facility] [place] [address] [address] 11/25/2023 09:03:41 11/25/2023 15:42:52 Right Achilles tendinitis 8269897670 83463 M76.61 rice therapyno strenuous activities Rx physical therapy- Finishes todayconti nue supportive shoe gear and stretching exercises daily to prevent recurrence educated patient on the importance of continuati on of stretching to prevent chronic inflammati on which can cause degradatio n and Achilles injury.fol low-up as needed [id number] ESTHER Ross [facility] [address] [place] [address] 03/16/2024 09:50:07 03/16/2024 10:36:45 Body mass index 30+ - obesity 199668886 Z68.42 BMI: 46.2 Essential hypertension 96061186 I10 Z79.899 138/78.Pat ient requesting repeat labs. Health Concerns Section Related Observation LastModified by Organization Detai ls LastModified Time None Recorded Concern Status LastModified by Organization Details LastModified Time None Recorded Advance Directives Directive None Recorded Payers Encounter Date Sequence Insurance Name Policy Number Policy Owens Covered Member ID Owens Member ID Guarantor Name 09/15/2023 1 [employer] (MEDICARE REPLACEMENT/ ADVANTAGE - HMO) [id number] Alexandria Hoover [id number] Alexandria Hoover 10/14/2023 1 [employer] (MEDICARE REPLACEMENT/ ADVANTAGE - HMO) [id number] Alexandria Hoover [id number] Alexandria N Kiko 10/28/2023 1 [employer] (MEDICARE REPLACEMENT/ ADVANTAGE - HMO) [id number] Alexandria N Kiko [id number] Alexandria N Kiko 11/25/2023 1 [employer] (MEDICARE REPLACEMENT/ ADVANTAGE - HMO) [id number] Alexandria N Kiko [id number] Alexandria N Kiko 03/16/2024 1 [employer] (MEDICARE REPLACEMENT/ ADVANTAGE - HMO) [id number] Alexandria Hoover [id number] Alexandria Hoover Notes Date Note Type Note Provider Name [...] bowling shoes. Ranjith Sadler MD [address], [place], [address], [employer] 10/20/2023 07:54:41 10/14/2023 text/html . Patient is [...] other complaints. Dwight Daigle DPM [address], [place], [address], [employer] 10/14/2023 09:59:48 10/28/2023 text/html . Patient is [...] with physical therapy. Dwight Daigle DPM [address], [address], [place], [address], [employer] 10/28/2023 10:05:05 11/25/2023 text/html . Patient is a 68-year-old female who returns the office for follow-up on right Achilles tendinitis. Patient states overall she is doing very well she states that she is went to physical therapy she is no longer experiencing pain with walking. Patient denies any injury to the heel area. Patient denies any other complaints. Dwight Daigle DPM [address], [place], [address], [employer] 11/25/2023 09:27:04 03/16/2024 text/html Patient is a [...] taking Tirzepatide compound for 3 months from [facility], is currently on the 4.0mg. Patient is [...] shortness of breath, nausea vomiting and diarrhea. ESTHER Ross [address], [place], [address], [employer] 03/16/2024 10:45:56 OBGyn Episode No OBEpisode recorded.
--- OUTSIDE RECORDS SUMMARY | 2024-11-03 08:53 | XMS_ITS | Clinical Summary ---
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 Not on file Not on file Obstetrics History Last Filed Vital Signs Vital Sign Reading Time Taken Comments Blood Pressure 118/78 10/10/2021 8:24 AM CDT Pulse 79 10/10/2021 8:24 AM CDT Temperature 36.5 C (97.7 F) 04/27/2020 8:11 AM 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
[2024-11-03 08:59] VITALS: BP 146/78; PULSE 97; RESP 17; TEMP 36.4; O2SAT 98
[2024-11-03 09:33] LABS: Basophils Percent Auto 0.8 % (0.2-1.2); Eosinophils Percent Auto 0.8 % (0-4.4); Hematocrit 40.8 % (37.0-47.0); Hemoglobin 13.4 g/dL (12.0-15.0); Immature Granulocyte Absolute 0.01 K/mm3 (0.00-0.031); Immature Granulocyte Percent A 0.2 % (0-0.5); Lymphocytes Absolute Auto 0.68 K/mm3 (0.9-3.2); Lymphocytes Percent Auto 12.8 % (18.3-44.2); Mean Corpuscular HGB Conc 32.8 g/dl (32-36); Mean Corpuscular Hemoglobin 30.5 pg (26-34); Mean Corpuscular Volume 92.9 fl (80-100); Mean Platelet Volume 9.3 fl (7.4-10.4); Monocytes Absolute Auto 0.8 K/mm3 (0.1-0.6); Monocytes Percent Auto 14.3 % (2.6-8.5); Neutrophils Absolute Auto 3.8 K/mm3 (1.3-6.7); Neutrophils Percent Auto 71.1 % (45.5-73.1); Platelet Count Result 197 k/mm3 (150-375); Red Blood Count 4.39 M/mm3 (4.2-5.4); Red Cell Distribution Width 12.9 % (11.5-14.5); White Blood Count 5.3 K/mm3 (4.5-10.0)
[2024-11-03 09:42] LABS: Anion Gap 8 mmol/L (4-12); Blood Urea Nitrogen 18 mg/dL (7-17); Calcium 9.6 mg/dL (8.4-10.2); Carbon Dioxide 25 mmol/L (22-30); Chloride 102 mmol/L (98-107); Estimated CRCL calculation 62 ml/min; Estimated Glomerular Filt Rate 60; Glucose 105 mg/dL (65-110); Potassium 4.5 mmol/L (3.4-5.0); Sodium 135 mmol/L (137-145)
[2024-11-03 09:48] LABS: Prothrombin Time 13.4 Seconds (11.1-14.7)
[2024-11-03 09:49] LABS: Partial Thromboplastin Time 25.4 Seconds (22.3-36.8)
--- NOTE | 2024-11-03 09:54 | ED_ITS ---
HPI - Extremity Problem General Chief complaint: Extremity Problem,Nontraumatic Stated complaint: L arm pain denies injury Time Seen by Provider: 11/03/24 09:09 Source: patient Mode of arrival: ambulatory Limitations: no limitations History of Present Illness HPI Narrative: This is a 69 year old female that presents to the ER for left upper arm pain. Ongoing since yesterday. No known injury or trauma. She has not taken anything for pain. The pain is worse with movement and relieved with rest. She has had blood clots before and is concerned for a blood clot. Denies fever, erythema, edema, numbness, weakness. Related Data Home Medications ?Medication ?Instructions ?Recorded ?Confirmed ?Last Taken ?Type aspirin 81 mg tablet,delayed 81 mg PO DAILY 04/08/19 10/26/24 12/16/23 History release (Enteric Coated Aspirin) escitalopram oxalate 5 mg tablet 5 mg PO QNOON 10/02/23 10/26/24 12/17/23 History (Lexapro) omeprazole 40 mg capsule,delayed 40 mg PO DAILY 10/02/23 10/26/24 12/17/23 History release lactobacillus combination no.8 3 3 cell PO DAILY 10/10/23 10/26/24 12/16/23 History billion cell capsule tirzepatide 2.5 mg/0.5 mL 2.5 mg subcut WEEKLY WEIGHT LOSS 10/10/23 10/26/24 12/09/23 History subcutaneous pen injector (Mounjaro) vitamin D3 250 mcg (10,000 1 cap PO DAILY 10/10/23 10/26/24 12/17/23 History unit)-vitamin K2 45 mcg capsule Allergies Allergy/AdvReac Type Severity Reaction Status Date / Time codeine Allergy Mild NAUSEA AND Verified 11/03/24 08:50 VOMITING ibuprofen (From Motrin) AdvReac Intermediate Nausea and Verified 11/03/24 08:50 Vomiting Review of Systems 2 Review of Systems: All systems reviewed & are unremarkable except as noted in HPI and below PMFSH Past Medical History Medical History Colon polyp Kidney malignancy Hx pulmonary embolism GERD (gastroesophageal reflux disease) Asthma Hypertension, essential Surgical History Surgical History History of kidney surgery Hx of cholecystectomy History of delivery H/O gastric sleeve S/P total knee arthroplasty Family History Family History Mother Emphysema lung Father Emphysema lung Carcinoma of colon Sibling Stomach cancer Social History Social History (Updated 10/26/24 @ 08:58 by Fede Bob MA) Smoking status: Never smoker Alcohol intake: never Substance use: never Substance use type: does not use Do You Feel Safe in your Home?: Yes Lack of Transportation: No Lack of Food: Never True Current Housing: I Have Housing Concerned About Future Housing: No Difficulty Paying Gas/Electric Bills: No Difficulty Paying for Meds: No Currently Unemployed: No Education: High School Diploma/GED Difficulty w/ Childcare or Family Care: No Living arrangements: alone Occupation/Education: retired Gender identity (if verbalized by the patient): Female Spiritual care concerns: No Exam 2 Narrative: GENERAL: Well-appearing, well-nourished, and in no acute distress. HEAD: Normocephalic, atraumatic. EYES: EOMI. ENT: Nares clear, no rhinorrhea or epistaxis. Mucous membranes moist. Oropharynx without tonsillar hypertrophy exudate or other lesions. Bilateral TMs pearly rojas non-bulging NECK: Supple. No adenopathy or masses. CHEST: No respiratory distress. HEART: Regular rate EXTREMITIES: Normal range of motion. No edema or erythema. Pain with active and passive ROM in the left shoulder. Normal radial pulse. Strength equal in bilateral upper extremities (5/5) SKIN: Warm, dry, no rash. NEURO: No focal deficits. Alert and oriented x3. PSYCH: Normal mood and affect Course Course Emergency Course: Patient updated on her workup and agrees with plan of care Vital Signs Vital signs: Vital Signs Temperature 97.5 F L 11/03/24 08:59 Pulse Rate 97 11/03/24 08:59 Respiratory Rate 17 11/03/24 08:59 Blood Pressure 146/78 H 11/03/24 08:59 Pulse Oximetry 98 11/03/24 08:59 Oxygen Delivery Room Air 11/03/24 08:59 Temperature 97.5 F L 11/03/24 08:59 Pulse Rate 78 11/03/24 12:26 Respiratory Rate 16 11/03/24 12:26 Blood Pressure 126/66 11/03/24 12:26 Pulse Oximetry 98 11/03/24 12:26 Oxygen Delivery Room Air 11/03/24 08:59 MDM - Extremity (Nontraumatic) MDM Narrative Medical decision making narrative: Patient presents to the emergency department for left shoulder pain. Ongoing since yesterday. No recent injuries or trauma. She is neurovascularly intact. No concerning findings on blood work. Left shoulder x-ray shows osteoarthritis. Ultrasound venous Doppler without evidence of DVT. No concerning changes on EKG. Patient updated on her workup and agrees with plan of care. She is to follow up with primary provider. She was given warnings to return to the ER Differential Diagnosis Differential diagnosis: Likely cellulitis, deep venous thrombosis of upper extremity and other (cervical radiculopathy, shoulder sprain, rotator cuff tendinopathy, DVT) Lab Data Attestation: I reviewed the patient's lab results. 11/03/24 09:26 11/03/24 09:26 Labs: Lab Results 11/03/24 Range/Units 09:26 WBC 5.3 (4.5-10.0) K/mm3 RBC 4.39 (4.2-5.4) M/mm3 Hgb 13.4 (12.0-15.0) g/dL Hct 40.8 (37.0-47.0) % MCV 92.9 (80-100) fl MCH 30.5 (26-34) pg MCHC 32.8 (32-36) g/dl RDW 12.9 (11.5-14.5) % Plt Count 197 (150-375) k/mm3 MPV 9.3 (7.4-10.4) fl Immature Gran % (Auto) 0.2 (0-0.5) % Neut % (Auto) 71.1 (45.5-73.1) % Lymph % (Auto) 12.8 L (18.3-44.2) % Ramsey % (Auto) 14.3 H (2.6-8.5) % Eos % (Auto) 0.8 (0-4.4) % Baso % (Auto) 0.8 (0.2-1.2) % Lymph # (Auto) 0.68 L (0.9-3.2) K/mm3 Ramsey # (Auto) 0.8 H (0.1-0.6) K/mm3 Eos # (Auto) 0.0 (0-0.3) K/mm3 Baso # (Auto) 0.0 (0.0-0.1) K/mm3 Abs Immat Gran (auto) 0.01 (0.00-0.031) K/mm3 Absolute Neuts (auto) 3.8 (1.3-6.7) K/mm3 Absolute Nucleated RBC 0.000 (0.0-0.012) K/mm3 Nucleated RBC % 0.0 (0.0-0.2) % PT 13.4 (11.1-14.7) Seconds INR 1.0 APTT 25.4 (22.3-36.8) Seconds Sodium 135 L (137-145) mmol/L Potassium 4.5 (3.4-5.0) mmol/L Chloride 102 (98-107) mmol/L Carbon Dioxide 25 (22-30) mmol/L Anion Gap 8 (4-12) mmol/L BUN 18 H (7-17) mg/dL Creatinine 0.93 (0.7-1.0) mg/dL Estim Creat Clear Calc 62 ml/min Estimated GFR 60 (59 - ) Glucose 105 (65-110) mg/dL Calcium 9.6 (8.4-10.2) mg/dL Imaging Data Radiologist's impression: ITS Impressions Shoulder X-Ray 11/03/24 10:22 IMPRESSION: Mild left glenohumeral and acromioclavicular osteoarthritis. No acute osseous abnormality. Venous Doppler Study 11/03/24 10:38 IMPRESSION: No left upper extremity deep venous thrombosis. ECG Data EKG #1: ECG completion date: 11/03/24 EKG Interpretation: normal rate, sinus rhythm, no ST changes and normal QT Critical Care Time Critical Care Time Critical Care Time: No Discharge Plan Discharge Clinical Impression: Acute pain of left shoulder Osteoarthritis Qualifiers: Osteoarthritis location: shoulder Osteoarthritis type: unspecified Laterality: left Qualified Code(s): M19.012 - Primary osteoarthritis, left shoulder Patient Disposition: Home Condition: Stable Instructions: Shoulder Pain (ED) Additional Instructions: Return to the ER if you experience fever, chest pain, shortness of breath, redness and swelling of your arm, weakness, numbness, or any other symptoms that are concerning to you Rest, use ice/heat, take anti-inflammatories (Aleve, Ibuprofen, Naproxen, etc) or Tylenol as needed for pain as well as muscle relaxer (Flexeril) as needed for pain. Muscle relaxers can make you drowsy, do not drive if you take this Follow up with your primary care doctor and orthopedics Patient Language: Belizean Prescriptions: New cyclobenzaprine 10 mg tablet 10 mg PO TID PRN (Reason: muscle spasm) Qty: 14 0RF No Action omeprazole 40 mg capsule,delayed release(DR/EC) 40 mg PO DAILY escitalopram oxalate [Lexapro] 5 mg tablet 5 mg PO QNOON aspirin [Enteric Coated Aspirin] 81 mg Tablet,Delayed Release (Dr/Ec) 81 mg PO DAILY amlodipine 5 mg Tablet 5 mg PO DAILY Qty: 0 0RF Rx Instructions: Check blood pressure q AM and do not take amlodipine if BP is under 110 systolic. albuterol sulfate [Proventil HFA] 90 mcg/actuation Hfa Aerosol Inhaler 2 puff inhalation Q4H PRN (Reason: SHORTNESS OF BREATH) Qty: 8.5 0RF lactobacillus combination no.8 3 billion cell Capsule 3 cell PO DAILY vitamin D3-vitamin K2 250 mcg (10,000 unit)-45 mcg Capsule 1 cap PO DAILY Mounjaro 2.5 mg/0.5 mL Pen Injector 2.5 mg SUBCUT WEEKLY Patient Comments: TAKES ON SUNDAYS acetaminophen 500 mg tablet 500 mg PO Q6H PRN (Reason: pain) Qty: 30 0RF Follow-up/Referrals: Lm Jefferson MD [Physician] - Leedey,Yue Ascencio NP [Primary Care Provider] -
--- OUTSIDE RECORDS SUMMARY | 2024-11-03 10:30 | XMS_ITS | Referral Summary ---
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
--- OUTSIDE RECORDS SUMMARY | 2024-11-03 10:30 | XMS_ITS | Clinical Summary ---
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 file Not on file Not on file Obstetrics History Last Filed Vital Signs Vital Sign Reading Time Taken Comments Blood Pressure 118/78 10/10/2021 8:24 AM CDT Pulse 79 10/10/2021 8:24 AM CDT Temperature 36.5 C (97.7 F) 04/27/2020 8:11 AM WRIST HEMMER Respiratory Rate 18 08/25/2018 3:09 PM CDT Oxygen Saturation 98% 10/10/2021 8:24 AM CDT Inhaled Oxygen Concentration - - Weight 135.1 kg (297 lb 12.8 oz) 10/10/2021 8:24 AM CDT Height 162.6 cm (5' 4) 10/10/2021 8:24 AM CDT Body Mass Index 51.12 10/10/2021 8:24 AM CDT Plan of Treatment Not on file Insurance [employer] PPO [place] [employer] CHO[employer] PRF PPO [place] [id number] [id number] Care Teams Automation And Control Engineer Relationship Specialty Start Date End Date Shari Sadler MD PCP - General Family Medicine 07/13/18
[2024-11-03] MEDS: ACETAMINOPHEN 500 MG TABLET 1000 MG PO (10:44)
--- NOTE | 2024-11-03 12:11 | ECG_ITS ---
Test Date: 2024-11-03 12:24:38 Measurements Intervals Emblem Rate: 76 P: 4 MT: 164 QRS: 42 QRSD: 103 T: 42 QT: 376 QTc: 424 Interpretive Statements SINUS RHYTHM LOW QRS VOLTAGE IN PRECORDIAL LEADS [QRS DEFLECTION < 1.0 mV IN CHEST LEADS] No previous ECG available for comparison Electronically Signed On 11-04-2024 15:07:10 CDT by Stanton Godfrey M.D.
[2024-11-03 12:26] VITALS: BP 126/66; PULSE 78; RESP 16; O2SAT 98
== END 2024-11-03 12:58 | disposition home or self-care (01) ==
PROVIDERS: Emergency Provider Physician Assistant; PCP Nurse Practitioner Family
DX: M19.012 Primary osteoarthritis, left shoulder (principal); K21.9 Gastro-esophageal reflux disease without esophagitis; I10 Essential (primary) hypertension; J45.909 Unspecified asthma, uncomplicated; Z86.711 Personal history of pulmonary embolism
CPT/HCPCS: 36415; 73030; 80048; 85025; 85610; 85730; 93005; 93971; 99284; A9270

== ENCOUNTER 2025-02-17 09:15 | Outpatient (CLI) | payer MEDICARE, SELFPAY ==
--- NOTE | ~2025-02-17 | MM_ITS ---
EXAMINATION: MM screening rashmi BI w franck HISTORY: Screening TECHNIQUE: Craniocaudal and mediolateral oblique 3-D tomosynthesis images were obtained and synthetic 2-D images were generated. CAD analysis was submitted and interpreted. COMPARISON: 02/17/2024 BREAST PARENCHYMAL COMPOSITION: The breasts are almost entirely fatty. FINDINGS: There is no evidence of suspicious mass, calcification, or architectural distortion to suggest malignancy in either breast. IMPRESSION: 1. No mammographic evidence of malignancy. 2. Recommend routine screening mammography in one year. BI-RADS Category 1: Negative Reviewed, dictated and finalized at location B.
--- OUTSIDE RECORDS SUMMARY | 2025-02-17 09:54 | XMS_ITS | Clinical Summary ---
Author Organization [facility] Address [address] [place] [address] Care Team Providers Care Digital Advertising Specialist Name Role Phone Unavailable Primary Care Provider [...] 1 - Tdap) 1976 Mammogram Screening 1997 Pneumococcal Vaccine: 50+ Ye ars (1 of 1 - PCV) 2007 Zoster Vaccines (1 of 2) 2007 Dexa Scan (General) 2022 COVID-19 Vaccine ( - 2023-2 5 season) 2025 RSV Immunization or 60+ Years (1 - [...]
--- OUTSIDE RECORDS SUMMARY | 2025-02-17 09:54 | XMS_ITS | Clinical Summary ---
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 Not on file Not on file Obstetrics History Last Filed Vital Signs Vital Sign Reading Time Taken Comments Blood Pressure 118/78 10/10/2021 8:24 AM CDT Pulse 79 10/10/2021 8:24 AM CDT Temperature 36.5 C (97.7 F) 04/27/2020 8:11 AM ORACLE AGILE PLM CONSULTANT Respiratory Rate 18 08/25/2018 3:09 PM CDT Oxygen Saturation 98% 10/10/2021 8:24 AM CDT Inhaled Oxygen Concentration - - Weight 135.1 kg (297 lb 12.8 oz) 10/10/2021 8:24 AM CDT Height 162.6 cm (5' 4) 10/10/2021 8:24 AM CDT Body Mass Index 51.12 10/10/2021 8:24 AM CDT Plan of Treatment Not on file Insurance [employer] PPO [place] [employer] PRF PPO [place] [address] [id number] Care Teams Deadener Relationship Specialty Start Date End Date Shari Sadler MD PCP - General Family Medicine 07/13/18
== END 2025-02-17 09:16 | disposition home or self-care (01) ==
LOC: ANHFOHIMG 09:16
PROVIDERS: PCP Nurse Practitioner Family; Visit Provider Obstetrics & Gynecology
DX: Z12.31 Encounter for screening mammogram for malignant neoplasm of breast (principal)
CPT/HCPCS: 77063; 77067